=== PATIENT | female | born 1930 | race Caucasian/White ===

== ENCOUNTER 2019-04-11 13:41 | Inpatient (IN) | payer MEDICARE, OTHER ==
[~2019-04-11] VITALS: Ht 165.1 cm; Wt 84.1 kg
[2019-04-11] MEDS ORDERED: IV NORMAL SALINE 500 ML BAG IV ONE (14:15)
[2019-04-11 14:42] LABS: BASOPHILS # (AUTO) 0.1 K/uL (0.0-8.0); CARBON DIOXIDE 33 mmol/L (21-32); CHLORIDE 102 mmol/L (98-107); CREATININE 1.4 mg/dL (0.6-1.3); EOSINOPHILS # (AUTO) 0.1 K/uL (0.0-0.7); EOSINOPHILS % (AUTO) 1.7 % (0.0-7.0); GLUCOSE 104 mg/dL (74-106); HEMATOCRIT 29.7 % (31.2-41.9); HEMOGLOBIN 9.3 g/dL (10.9-14.3); LYMPHOCYTES # (AUTO) 1.9 K/uL (20.0-40.0); MEAN CORPUSCULAR HGB CONC 31 g/dL (32.3-35.6); MEAN CORPUSCULAR VOLUME 92.4 fL (75.5-95.3); MONOCYTES # (AUTO) 0.5 K/uL (2.0-10.0); MONOCYTES % (AUTO) 9.7 % (0.0-11.0); NEUTROPHILS % (AUTO) 53.6 % (38.5-71.5); PLATELET COUNT (AUTO) 130 K/uL (179-408); POTASSIUM 5.1 mmol/L (3.5-5.1); RED BLOOD CELL COUNT(AUTO) 3.22 MIL/uL (3.63-4.92); UREA NITROGEN, BLOOD 38 mg/dL (7-18); WHITE BLOOD COUNT (AUTO) 5.5 K/uL (3.8-11.8)
[2019-04-11 14:47] LABS: ALANINE AMINOTRANSFERASE 6 U/L (14-59); ALKALINE PHOSPHATASE 174 U/L (50-136); ASPARTATE AMINOTRANSFERASE 9 U/L (15-37); BILIRUBIN,DIRECT 0.3 mg/dL (0.0-0.2); BILIRUBIN,TOTAL 0.9 mg/dL (0.2-1.0); LIPASE 73 U/L (73-393); TOTAL PROTEIN, SERUM 8.9 g/dL (6.4-8.2)
--- NOTE | 2019-04-11 15:00 | NUR ---
perineal hygiene provided.
[2019-04-11 15:12] LABS: *BILIRUBIN,URIN NEGATIVE (NEGATIVE); *CLARITY,URINE SLIGHTLY CLOUDY (CLEAR); *COLOR,URINE DARK YELLOW (YELLOW); *KETONES,URINE TRACE (NEGATIVE); *UROBILINOGEN,URINE 0.2 E.U./dl (NORMAL); LEUKOCYTE ESTERASE ,URINE 1+ (NEGATIVE); NITRITE, URINE NEGATIVE (NEGATIVE); UGLUCOSE NEGATIVE (NEGATIVE)
[2019-04-11] MEDS ORDERED: ALBUTEROL SULFATE 2.5 MG/3 ML NEBU NEB ONE (15:15)
[2019-04-11] MEDS ORDERED: IPRATROPIUM BROMIDE 0.5 MG/2.5 ML NEBU NEB ONE (15:15)
[2019-04-11 15:23] LABS: *BLOOD, URINE TRACE (NEGATIVE)
[2019-04-11 15:25] LABS: BACTERIA,URINE FEW /HPF (NONE SEEN); SQUAMOUS EPITHELIAL CELL,UR MODERATE /HPF (NONE SEEN); WBC,URINE 50-80 /HPF (0-3)
[2019-04-11 15:26] LABS: MUCUS,URINE MODERATE /LPF (0-FEW); YEAST,URINE MODERATE /HPF (NONE SEEN)
[2019-04-11] MEDS ORDERED: ALBUTEROL SULFATE 2.5 MG/3 ML NEBU ONE (15:28)
[2019-04-11] MEDS ORDERED: IPRATROPIUM BROMIDE 0.5 MG/2.5 ML NEBU ONE (15:28)
[2019-04-11] MEDS ORDERED: MELA3TAB63 GT (15:53)
[2019-04-11] MEDS ORDERED: POTA20PA34 GT (15:53)
[2019-04-11] MEDS ORDERED: SIME80TA15 GT (15:53)
[2019-04-11] MEDS ORDERED: ENTA200T3 GT (15:53)
[2019-04-11] MEDS ORDERED: FERR220S6 GT (15:53)
[2019-04-11] MEDS ORDERED: LACT1TAB12 GT (15:53)
[2019-04-11] MEDS ORDERED: AMIN30LI26 GT (15:53)
[2019-04-11] MEDS ORDERED: CYAN-51 GT (15:53)
[2019-04-11] MEDS ORDERED: MULT-213 GT (15:53)
[2019-04-11] MEDS ORDERED: EPOE1VIA12 IJ (15:53)
[2019-04-11] MEDS ORDERED: ASCO500T87 GT (15:53)
[2019-04-11] MEDS ORDERED: ACET-2154 GT ×3 (15:53)
[2019-04-11] MEDS ORDERED: LOPE-197 GT (15:53)
[2019-04-11] MEDS ORDERED: ASCO-375 GT (15:53)
[2019-04-11] MEDS ORDERED: MAGN400O6 GT (15:53)
[2019-04-11] MEDS ORDERED: NA P133E RC (15:53)
[2019-04-11] MEDS ORDERED: FAMO40TA7 GT (15:53)
[2019-04-11] MEDS ORDERED: LINA5TAB GT (15:53)
[2019-04-11] MEDS ORDERED: CARB-93 GT (15:53)
[2019-04-11] MEDS ORDERED: INSU100V9 SUBCUT (15:53)
[2019-04-11] MEDS ORDERED: DONE5TAB34 GT (15:53)
[2019-04-11] MEDS ORDERED: TORS20TA3 GT (15:53)
[2019-04-11] MEDS ORDERED: CYAN-10 IJ (15:53)
[2019-04-11] MEDS ORDERED: INSU100V7 SQ (15:53)
[2019-04-11] MEDS ORDERED: LEVO100T10 GT (15:53)
[2019-04-11] MEDS ORDERED: BISA10SU61 RC (15:53)
[2019-04-11] MEDS ORDERED: RIVA15TA GT (15:53)
[2019-04-11] MEDS ORDERED: DIGO125T GT (15:53)
[2019-04-11] MEDS ORDERED: ACET-73 GT (15:54)
[2019-04-11] MEDS ORDERED: ATROPINE 1% SL (15:54)
[2019-04-11] MEDS ORDERED: IPRA3AMP22 IH ×2 (15:54)
--- NOTE | 2019-04-11 17:00 | NUR ---
pt transfered to [facility] when bed available accompanied by rt. pt daughter and patient care assistant at bedside most of the er stay. pt reamined the same. vss.
--- NOTE | 2019-04-11 17:30 | NUR ---
Admit a 89 yo female from ER via [facility] with a c/o rectal bleed. HR V pacing 100%. No aqctive bleeding noted at this time. Notified Dr Moody of admission.
[2019-04-11] MEDS ORDERED: FLEET ENEMA 133 ML BOTTLE RC PRN (19:45)
[2019-04-11] MEDS ORDERED: BISACODYL 10 MG SUPP.RECT RC PRN (19:45)
[2019-04-11] MEDS ORDERED: MAGNESIUM HYDROXIDE 30 ML LIQUID UDC GT PRN (19:45)
[2019-04-11 20:00] VITALS: BP 124/59
[2019-04-11] MEDS ORDERED: INSULIN REGULAR, HUMAN 300 UNIT/3 ML VIAL SQ PRN (20:00)
[2019-04-11] MEDS ORDERED: DEXTROSE 50% 50 ML DISP.SYRIN IV PRN (20:00)
--- NOTE | 2019-04-11 20:00 | NUR ---
RECEIVED PT WITHDRAWS TO PAINFUL STIMULI. TRACH TO VENT W/ SETTINGS OF AC-15, TV-400, FIO2-35%, PEEP-+5 W/ O2 SAT OF 100%. HEP LOCK INTACT & PATENT ON LFA. G-TUBE INTACT & PATENT, NPO EXCEPT MEDS, REMAINS CLAMPED.SUCTIONED VIA TRACH & ORALLY W/ MINIMAL AMT OF TANNISH MUCOUS. REPOSITIONED ON HER SIDE W/ HOB ELEVATED.
[2019-04-11] MEDS: DONEPEZIL 5 MG TABLET GT SCH (21:08)
[2019-04-11] MEDS ORDERED: MELATONIN 3 MG TABLET ONE (21:24)
[2019-04-11] MEDS ORDERED: SIMETHICONE 80 MG TAB.CHEW ONE (21:25)
[2019-04-11] MEDS ORDERED: AMIODARONE HCL 200 MG TABLET ONE (21:26)
[2019-04-11] MEDS ORDERED: CARBIDOPA/LEVODOPA 25-100MG TABLET ONE ×2 (21:26→21:53)
[2019-04-11] MEDS: SIMETHICONE 80 MG TAB.CHEW GT SCH (21:40)
[2019-04-11] MEDS: CARBIDOPA/LEVODOPA 25-100MG TABLET GT SCH (21:42)
[2019-04-11] MEDS: MELATONIN 3 MG TABLET GT SCH (21:45)
[2019-04-11] MEDS: ENTACAPONE 200 MG TABLET GT SCH (21:57)
[2019-04-11] MEDS ORDERED: ENTACAPONE 200 MG TABLET ONE (22:06)
[2019-04-11 22:07] LABS: BASOPHILS # (AUTO) 0.1 K/uL (0.0-8.0); BASOPHILS % (AUTO) 1.3 % (0.0-2.0); EOSINOPHILS # (AUTO) 0.1 K/uL (0.0-0.7); EOSINOPHILS % (AUTO) 1.7 % (0.0-7.0); HEMATOCRIT 25.9 % (31.2-41.9); HEMOGLOBIN 8.2 g/dL (10.9-14.3); LYMPHOCYTES # (AUTO) 1.2 K/uL (20.0-40.0); LYMPHOCYTES % (AUTO) 26.8 % (20.5-51.5); MEAN CORPUSCULAR HEMOGLOBIN 29.2 uug (24.7-32.8); MEAN CORPUSCULAR HGB CONC 32 g/dL (32.3-35.6); MEAN CORPUSCULAR VOLUME 91.9 fL (75.5-95.3); MONOCYTES # (AUTO) 0.6 K/uL (2.0-10.0); MONOCYTES % (AUTO) 12.6 % (0.0-11.0); NEUTROPHILS # (AUTO) 2.7 K/uL (1.8-8.9); NEUTROPHILS % (AUTO) 57.6 % (38.5-71.5); PLATELET COUNT (AUTO) 101 K/uL (179-408); RED BLOOD CELL COUNT(AUTO) 2.82 MIL/uL (3.63-4.92); WHITE BLOOD COUNT (AUTO) 4.7 K/uL (3.8-11.8)
[2019-04-11] MEDS: IV D5 1/2 NS 1000 ML 1,000 ML IV PRN (22:41)
[2019-04-11] MEDS: BLOOD SUGAR DIAGNOSTIC 1 EACH STRIP VI SCH (22:42)
[2019-04-11] MEDS: PANTOPRAZOLE SODIUM 40 MG VIAL IV SCH (22:49)
[2019-04-11] MEDS: IPRATROPIUM BROMIDE 0.5 MG/2.5 ML NEBU NEB SCH (22:50)
--- NOTE | 2019-04-11 23:00 | NUR ---
HS CARE DONE.NO RECTAL BLEEDING NOTED THIS TIME. SUCTIONED & REPOSITIONED W/ HOB ELEVATED.
[2019-04-11] MEDS ORDERED: INSULIN GLARGINE,HUM 300 UNITS/3 ML CARTRIDGE SQ ONE (23:01)
[2019-04-11] MEDS: INSULIN GLARGINE,HUM 300 UNITS/3 ML CARTRIDGE SQ SCH (23:06)
[2019-04-12] VITALS: BP 114/48
[2019-04-12] MEDS: IPRATROPIUM BROMIDE 0.5 MG/2.5 ML NEBU NEB SCH ×6 (03:23→23:14)
[2019-04-12 04:00] VITALS: BP 117/53
--- NOTE | 2019-04-12 04:00 | NUR ---
AM CARE DONE. HAD SMALL AMT. OF RECTAL BLEED. G-TUBE CONNECTED TO LOW INTERMITENT SUCTION W/ THICK BROWNISH DRAINAGE. REPOSITIONED ON HER SIDE W/ HOB ELEVATED. TRACH CARE DONE. G-TUBE SITE CLEANED & DRSG APPLIED.
[2019-04-12] MEDS ORDERED: Z GUARD REMEDY PASTE 57 GM TUBE TOP PRN (04:45)
[2019-04-12] MEDS ORDERED: ENTACAPONE 200 MG TABLET ONE (05:48)
[2019-04-12] MEDS ORDERED: SIMETHICONE 80 MG TAB.CHEW ONE (05:48)
[2019-04-12] MEDS ORDERED: CARBIDOPA/LEVODOPA 25-100MG TABLET ONE (05:48)
--- NOTE | 2019-04-12 05:53 | NUR ---
V/S STABLE . O2 SAT 100%. RESP IS SHALLOW.
[2019-04-12] MEDS: ENTACAPONE 200 MG TABLET GT SCH ×3 (05:57→13:31)
[2019-04-12] MEDS: SIMETHICONE 80 MG TAB.CHEW GT SCH ×3 (06:00→20:28)
[2019-04-12] MEDS: CARBIDOPA/LEVODOPA 25-100MG TABLET GT SCH ×3 (06:01→13:31)
--- NOTE | 2019-04-12 07:20 | NUR ---
RECEIVED PT THAT WITHDRAWS FROM PAINFUL STIMULI. TRACH TO KARLA VENT W/ SETTINGS OF AC-15, TV-400, FIO2-35%, PEEP5, O2 SAT OF 100%. SALINE LOCK INTACT & PATENT ON LFA. G-TUBE LEAKING AROUND OPENING, SITE DRESSING SATURATED, NPO EXCEPT MEDS, REMAINS CLAMPED. REPOSITIONED ON HER BACK W/ HOB ELEVATED >30. ENRIQUEZ DRAINING ED URINE, HEELS FLOATED AND BONY PROMINCES OFFLOADED.
[2019-04-12 08:00] VITALS: BP 120/61
[2019-04-12] MEDS: LEVOTHYROXINE SODIUM 100 MCG TABLET GT SCH (08:07)
[2019-04-12] MEDS: ACIDOPHILUS/BULGARICUS CHEW TAB GT SCH ×2 (08:08→20:24)
[2019-04-12] MEDS: DIGOXIN 125 MCG TABLET GT SCH (08:08)
[2019-04-12] MEDS: ASCORBIC ACID 500 MG TABLET GT SCH (08:09)
[2019-04-12] MEDS: PANTOPRAZOLE SODIUM 40 MG VIAL IV SCH ×2 (08:09→20:25)
[2019-04-12] MEDS: MULTIVIT, IRON, MIN NO. 8, FA TABLET GT SCH (08:09)
[2019-04-12 08:10] LABS: CARBON DIOXIDE 33 mmol/L (21-32); CHLORIDE 103 mmol/L (98-107); CREATININE 1.5 mg/dL (0.6-1.3); GLUCOSE 111 mg/dL (74-106); PHOSPHOROUS 3.6 mg/dL (2.5-4.9); POTASSIUM 4.7 mmol/L (3.5-5.1)
[2019-04-12] MEDS: Z GUARD REMEDY PASTE 57 GM TUBE TOP SCH ×2 (08:10→20:30)
[2019-04-12 08:20] LABS: UREA NITROGEN, BLOOD 41 mg/dL (7-18)
[2019-04-12] MEDS: BLOOD SUGAR DIAGNOSTIC 1 EACH STRIP VI SCH ×4 (08:20→20:36)
[2019-04-12] MEDS: PROTEIN SUPPLEMENT (PROSTAT) 30 ML LIQUID GT SCH ×2 (08:20→17:42)
[2019-04-12] MEDS ORDERED: PIPERACILLIN/TAZO 2.25 G in IV DEXTROSE 5% 50 ML IV SCH (08:30)
--- NOTE | 2019-04-12 08:30 | NUR ---
PATIENT SEEN BY DR. PEARSON, INFORMED HIM THAT PATIENTS DAUGHTER/DPOA WOULD LIKE TO SPEAK WITH HIM. ORDERS NOTED IN CHART. PATIENT WAS ALSO SEEN BY DR CORMIER- ORDERS FOR KUB AND ABG.
[2019-04-12 08:39] LABS: BASOPHILS % (AUTO) 0.9 % (0.0-2.0); EOSINOPHILS # (AUTO) 0.1 K/uL (0.0-0.7); EOSINOPHILS % (AUTO) 1.7 % (0.0-7.0); HEMATOCRIT 26.1 % (31.2-41.9); HEMOGLOBIN 8.1 g/dL (10.9-14.3); LYMPHOCYTES % (AUTO) 23.9 % (20.5-51.5); MEAN CORPUSCULAR HEMOGLOBIN 28.8 uug (24.7-32.8); MEAN CORPUSCULAR HGB CONC 31 g/dL (32.3-35.6); MEAN CORPUSCULAR VOLUME 92.4 fL (75.5-95.3); MONOCYTES # (AUTO) 0.4 K/uL (2.0-10.0); MONOCYTES % (AUTO) 10.2 % (0.0-11.0); NEUTROPHILS # (AUTO) 2.7 K/uL (1.8-8.9); NEUTROPHILS % (AUTO) 63.3 % (38.5-71.5); PLATELET COUNT (AUTO) 106 K/uL (179-408); RED BLOOD CELL COUNT(AUTO) 2.82 MIL/uL (3.63-4.92); WHITE BLOOD COUNT (AUTO) 4.2 K/uL (3.8-11.8)
--- NOTE | 2019-04-12 08:50 | NUR ---
SEND ABG RESULTS TO DR ROMANO AND NOTIFIED HIM OF POOR VISUALIZATION OF CHEST XRAY. RECEIVED ORDERS FOR ABDOMINAL/PELVIS CT.
[2019-04-12 08:52] LABS: ABG BASE EXCESS 4.1 mmol/L; ABG HCO3 29.7 mmol/L; ABG PCO2 48.7 mmHg (35.0-45.0); ABG PH 7.403 (7.350-7.450); ABG PO2 134.3 mmHg (75.0-100.0); ABG SITE RIGHT RADIAL; ABG TOTAL HEMOGLOBIN 12.7 G/dL (12.0-16.0); COHb 1.7 % (0.5-1.5); MetHb 0.3 % (0.0-1.5); VENT MODE VENT - A/C 15; VT, ABG 400 mL
[2019-04-12] MEDS ORDERED: TORSEMIDE 20 MG GT SCH (09:00)
[2019-04-12] MEDS ORDERED: PANTOPRAZOLE SODIUM 40 MG VIAL IV SCH (09:00)
[2019-04-12] MEDS ORDERED: Medication Not On Formulary EA (Lactobacillus Acidophilus (Acidophilus) 1 EACH) GT SCH (09:00)
[2019-04-12] MEDS ORDERED: Medication Not On Formulary EA (Multivitamins W-Minerals (Multivitamin With Minerals) 1 GT SCH (09:00)
--- NOTE | 2019-04-12 10:00 | NUR ---
PATIENT TAKEN TO CT.
[2019-04-12] MEDS: COLCHICINE 0.6 MG TABLET PO SCH (10:10)
[2019-04-12] MEDS: LINAGLIPTIN 5 MG TABLET GT SCH (10:12)
[2019-04-12] MEDS: FUROSEMIDE 40 MG TABLET PO SCH (10:12)
[2019-04-12] MEDS: CYANOCOBALAMIN 1,000 MCG TABLET GT SCH (10:13)
[2019-04-12] MEDS: PIPERACILLIN/TAZOBACTAM/D5W 3.375 G in IV DEXTROSE 5% 50 ML IV SCH ×2 (10:13→17:46)
[2019-04-12 10:19] LABS: MAGNESIUM 2.4 mg/dL (1.8-2.4)
--- NOTE | 2019-04-12 10:30 | NUR ---
ULTRASOUND DONE AND REPORTED TO DR PEARSON. PATIENT IS TO BE SCHEDULED FOR ULTRASOUND GUIDED PARACENTESIS TOMORROW AND NPO AFTER MIDNIGHT.
[2019-04-12] MEDS ORDERED: NEOMYCIN SULFATE 500 MG TABLET PO ONE (11:43)
--- NOTE | 2019-04-12 11:55 | NUR ---
US guided Paracentesis schedled for tmrw AM. Notified RN Lennie and pt daughter flori.
[2019-04-12 12:00] VITALS: BP 123/63
[2019-04-12] MEDS: IV D5 1/2 NS 1000 ML 1,000 ML IV PRN (12:58)
[2019-04-12] MEDS ORDERED: GLUCERNA 1.2 1000ML LIQUID GT PRN (14:30)
[2019-04-12] MEDS ORDERED: HYDROCORTISONE RECTAL SUPP 25 MG EACH RC PRN (14:45)
--- NOTE | 2019-04-12 15:07 | NUR ---
PATIENT SEEN BY GENERAL SURGERY
[2019-04-12 16:00] VITALS: BP 101/49
[2019-04-12] MEDS ORDERED: INDOMETHACIN 25 MG CAPSULE PO SCH (18:00)
--- NOTE | 2019-04-12 18:28 | NUR ---
Patient exhibited no distress throughout shift. Advance directive and DPOA paperwork received and placed in chart. Patient continues to be on Melody vent tach with shiley 6xlt, settings a/c 15, TV 400, Peep 5, FIO2 35%. Abdomen remains distended with suction of gtube to low intermittent. Patient to remain npo for procedure tomorrow morning. Consent is signed by daughter DPRUDY Valle. Patient is pacing on the monitor at 75 o2 saturation @100%. IV fluids d51/2ns @75cc/hr. Patient had three BM's this shift and was frequently repositioned and cleaned to prevent further deterioration of stage 3 decubitus sacral ulcer.
--- NOTE | 2019-04-12 19:35 | NUR ---
Pt received on continuous mechanical ventilation via Trach. Pt is on Guerra vent with ordered settings of A/C-15, VT-400, PEEP+5, FIO2-35% Trach is Shiley 6XLT-D, patent and secure. In-line nebulizer Treatments given as ordered with Q4 Atrovent. Tx tolerated well, with no adverse reaction noted. Sxn'd for small amounts of thick yellowish secretions. Vent alarm parameters checked, on and audible. Bag/valve/mask and back up trach at bedside. Vent plugged into red emergency outlet. HME changed. Oral care done. Will continue to monitor.
[2019-04-12 20:00] VITALS: BP 128/72
[2019-04-12] MEDS: ENTACAPONE 200 MG TABLET PO SCH (20:10)
[2019-04-12] MEDS: CARBIDOPA/LEVODOPA 25-100MG TABLET PO SCH (20:11)
[2019-04-12] MEDS: MELATONIN 3 MG TABLET GT SCH (20:16)
[2019-04-12] MEDS: DONEPEZIL 5 MG TABLET GT SCH (20:23)
[2019-04-12] MEDS: INSULIN GLARGINE,HUM 300 UNITS/3 ML CARTRIDGE SQ SCH (20:37)
[2019-04-13] VITALS (71 sets, daily range): BP systolic 32–173; BP diastolic 16–156
[2019-04-13] MEDS: PIPERACILLIN/TAZOBACTAM/D5W 3.375 G in IV DEXTROSE 5% 50 ML IV SCH ×3 (01:13→21:45)
[2019-04-13] MEDS: IV D5 1/2 NS 1000 ML 1,000 ML IV PRN ×3 (02:55→23:07)
[2019-04-13] MEDS: IPRATROPIUM BROMIDE 0.5 MG/2.5 ML NEBU NEB SCH ×6 (03:11→22:42)
--- NOTE | 2019-04-13 04:00 | NUR ---
Oral airway in use / patient loudly grinding teeth. Large amount black tarry stool. Noted distended abdomen. Remains NPO / paracentesis today. Low intermittent suction / murky brown drainage & at G-tube site. Noted low urine output.
[2019-04-13 05:07] LABS: BASOPHILS % (AUTO) 0.7 % (0.0-2.0); EOSINOPHILS # (AUTO) 0.1 K/uL (0.0-0.7); EOSINOPHILS % (AUTO) 2.1 % (0.0-7.0); HEMATOCRIT 26.7 % (31.2-41.9); HEMOGLOBIN 8.4 g/dL (10.9-14.3); LYMPHOCYTES # (AUTO) 0.5 K/uL (20.0-40.0); LYMPHOCYTES % (AUTO) 8.6 % (20.5-51.5); MEAN CORPUSCULAR HEMOGLOBIN 28.9 uug (24.7-32.8); MEAN CORPUSCULAR HGB CONC 32 g/dL (32.3-35.6); MEAN CORPUSCULAR VOLUME 91.7 fL (75.5-95.3); MONOCYTES # (AUTO) 0.4 K/uL (2.0-10.0); MONOCYTES % (AUTO) 6.3 % (0.0-11.0); NEUTROPHILS # (AUTO) 5.1 K/uL (1.8-8.9); NEUTROPHILS % (AUTO) 82.3 % (38.5-71.5); PLATELET COUNT (AUTO) 119 K/uL (179-408); RED BLOOD CELL COUNT(AUTO) 2.92 MIL/uL (3.63-4.92); WHITE BLOOD COUNT (AUTO) 6.3 K/uL (3.8-11.8)
[2019-04-13 05:08] LABS: CARBON DIOXIDE 32 mmol/L (21-32); CHLORIDE 102 mmol/L (98-107); CREATININE 1.6 mg/dL (0.6-1.3); GLUCOSE 125 mg/dL (74-106); MAGNESIUM 2.1 mg/dL (1.8-2.4); PHOSPHOROUS 2.9 mg/dL (2.5-4.9); POTASSIUM 3.8 mmol/L (3.5-5.1); UREA NITROGEN, BLOOD 37 mg/dL (7-18)
[2019-04-13 05:20] LABS: THYROID STIMULATING HORMONE 2.639 mIU/mL (0.358-3.740)
[2019-04-13] MEDS: SIMETHICONE 80 MG TAB.CHEW GT SCH ×3 (06:10→22:00)
[2019-04-13] MEDS: CARBIDOPA/LEVODOPA 25-100MG TABLET GT SCH ×4 (06:10→16:04)
[2019-04-13] MEDS: ENTACAPONE 200 MG TABLET GT SCH ×4 (06:11→16:04)
[2019-04-13] MEDS: LEVOTHYROXINE SODIUM 100 MCG TABLET GT SCH (06:13)
--- NOTE | 2019-04-13 07:15 | NUR ---
Received report from night supervisor nurse, patient in bed, on kaley vent settings a/c 15, peep 5, TV 400, 35% 02. Vieyra draining bright yellow urine, hemodynamically stable, oxygen saturation 100%. SCD's on. Patient suctioned, repositioned and stool noted and patient care performed with linen change.
[2019-04-13] MEDS: BLOOD SUGAR DIAGNOSTIC 1 EACH STRIP VI SCH ×4 (07:38→22:04)
[2019-04-13] MEDS: ACETAMINOPHEN 325 MG TABLET GT PRN (07:41)
--- NOTE | 2019-04-13 07:48 | NUR ---
PT RECEIVED ON CMV WITH SETTNIGS OF AC 15, 400, PEEP +5, FIO2 35%. PT HAS A SHILEY #6 XLT CUFFED TRACH. VENT ALARMS CHECKED, ARE ON AND AUDIBLE. NO CHANGES MADE ON VENT AT THIS TIME. ADMINISTERED Q4 TX ORDERED BY MD. SUCTIONED SMALL AMOUNT OF THICK, PALE SECRETIONS. HME CHANGED. AMBU BAG AND BACK UP TRACH ARE AT BEDSIDE. VENT PLUGGED INTO RED EMERGENCY OUTLET. WILL CONTINUE TO MONITOR.
--- NOTE | 2019-04-13 07:51 | NUR ---
Contacted Dr. Townsend regarding blood pressure. Repositioned patient with legs elevated.
--- NOTE | 2019-04-13 08:00 | NUR ---
Received return call from Dr. Townsend. No new orders. BP appears to be increasing with leg elevation.
[2019-04-13] MEDS: FUROSEMIDE 40 MG TABLET PO SCH (09:00)
[2019-04-13] MEDS ORDERED: EPOETIN ALFA 10,000 UNITS/ML VIAL SQ SCH (09:00)
--- NOTE | 2019-04-13 09:00 | NUR ---
Received orders for 500cc ns bolus once from Dr. Townsend
[2019-04-13] MEDS: ACIDOPHILUS/BULGARICUS CHEW TAB GT SCH ×2 (09:07→21:00)
[2019-04-13] MEDS: DIGOXIN 125 MCG TABLET GT SCH (09:08)
[2019-04-13] MEDS: PROTEIN SUPPLEMENT (PROSTAT) 30 ML LIQUID GT SCH ×2 (09:08→17:00)
[2019-04-13] MEDS: CYANOCOBALAMIN 1,000 MCG TABLET GT SCH (09:10)
[2019-04-13] MEDS: MULTIVIT, IRON, MIN NO. 8, FA TABLET GT SCH (09:10)
[2019-04-13] MEDS: LINAGLIPTIN 5 MG TABLET GT SCH (09:10)
[2019-04-13] MEDS: PANTOPRAZOLE SODIUM 40 MG VIAL IV SCH ×2 (09:11→21:44)
[2019-04-13] MEDS: ASCORBIC ACID 500 MG TABLET GT SCH (09:11)
[2019-04-13] MEDS: COLCHICINE 0.6 MG TABLET PO SCH (09:11)
[2019-04-13] MEDS: Z GUARD REMEDY PASTE 57 GM TUBE TOP SCH ×2 (09:13→21:46)
--- NOTE | 2019-04-13 10:00 | NUR ---
Patient prepped for paracentesis US tech and Dr. Swift at bedside. Family asked to leave the room during procedure, approved by Dr. Swift to stay.
[2019-04-13] MEDS ORDERED: ALBUMIN HUMAN 25% 100 ML IV ONE (12:15)
[2019-04-13] MEDS ORDERED: ALBUMIN HUMAN 25% 25 GM in PREMIXED 1 EACH IV SCH (12:30)
--- NOTE | 2019-04-13 12:30 | NUR ---
Received orders for Plasmanate from dr Townsend after contacting for decreased BP
--- NOTE | 2019-04-13 12:53 | NUR ---
WOUND CARE CONSULT: UNABLE TO DO SKIN ASSESSMENT AT THIS TIME DUE TO PT HEMODYNAMICALLY UNSTABLE. PER SENDING FACILITY AND ADMISSION DOCUMENTATION, PT HAS STAGE 3 ULCER TO SACRAL AREA, PRESENT ON ADMISSION. RECOMMEND SURGICAL CONSULT. DR YAIMA PEARSON NOTIFIED (CURRENTLY ON CASE). RECOMMENDATIONS MADE FOR SKIN PROTECTION AND WOUND CARE. DISCUSSED WITH NURSING STAFF. FIRST STEP LOW AIRLOSS MATTRESS ON ORDER. WILL SEE PRN. IN AGREEMENT WITH PLAN OF CARE.
[2019-04-13 13:39] LABS: EOSINOPHILS # (AUTO) 0.2 K/uL (0.0-0.7); LYMPHOCYTES # (AUTO) 0.6 K/uL (20.0-40.0)
[2019-04-13 13:44] LABS: BASOPHILS % (AUTO) 0.8 % (0.0-2.0); EOSINOPHILS % (AUTO) 2.9 % (0.0-7.0); LYMPHOCYTES % (AUTO) 10.5 % (20.5-51.5); MEAN CORPUSCULAR HEMOGLOBIN 29.6 uug (24.7-32.8); MEAN CORPUSCULAR HGB CONC 32 g/dL (32.3-35.6); MEAN CORPUSCULAR VOLUME 92.7 fL (75.5-95.3); MONOCYTES # (AUTO) 0.5 K/uL (2.0-10.0); MONOCYTES % (AUTO) 8.3 % (0.0-11.0); NEUTROPHILS # (AUTO) 4.8 K/uL (1.8-8.9); NEUTROPHILS % (AUTO) 77.5 % (38.5-71.5); PLATELET COUNT (AUTO) 95 K/uL (179-408); RED BLOOD CELL COUNT(AUTO) 2.47 MIL/uL (3.63-4.92); WHITE BLOOD COUNT (AUTO) 6.2 K/uL (3.8-11.8)
[2019-04-13 13:47] LABS: HEMOGLOBIN 7.3 g/dL (10.9-14.3)
[2019-04-13 13:49] LABS: HEMATOCRIT 22.9 % (31.2-41.9)
[2019-04-13 14:21] LABS: BAND % (MANUAL) 11 % (0-10); EOSINOPHILS % (MANUAL) 3 % (0-8); LYMPHOCYTES % (MANUAL) 13 % (20-40); METAMYELOCYTES % 1 % (0-1); MONOCYTES % (MANUAL) 5 % (2-10); MYELOCYTES % 1 % (0-0); NEUTROPHILS % (MANUAL) 64 % (42-75)
[2019-04-13 14:23] LABS: REACTIVE LYMPHOCYTES 2 % (0-0)
[2019-04-13] MEDS: ALBUTEROL SULFATE 2.5 MG/3 ML NEBU NEB PRN ×2 (14:30→18:53)
--- NOTE | 2019-04-13 14:30 | NUR ---
PER NURSE, FAMILY IS SUGGESTING PT IS SHORT OF BREATH. UPON ARRIVAL, NO S/S OF SOB OBSERVED. PRN ALBUTEROL TX ADMINISTERED ALONG WITH Q4 ATROVENT TX A PRECAUTIONARY. HEART RATE AND SPO2 WITHIN NORMAL LIMITS AT THIS TIME. WILL CONTINUE TO MONITOR.
--- NOTE | 2019-04-13 16:00 | NUR ---
Received critical values for hemoglobin 7.3, relayed to dr hicks. orders received to get consent and order one unit PRBC.
[2019-04-13] MEDS: SOD FERRIC GLUC COMPLX/SUCROSE 125 MG in IV NORMAL SALINE 100 ML IV SCH (16:03)
[2019-04-13] MEDS ORDERED: NOREPINEPHRINE BITARTRATE 8 MG in IV DEXTROSE 5% 500 ML IV PRN ×4 (16:30)
[2019-04-13] MEDS ORDERED: IV NS 1000 ML 1,000 ML IV PRN (17:00)
--- NOTE | 2019-04-13 17:00 | NUR ---
Contacted Dr. Ascencio and received orders to start neosynephrine at max dose 300mcg.
--- NOTE | 2019-04-13 17:04 | NUR ---
Orders received from dr mcdermott for 1L bolus of ns after calling about patients declining BP.
[2019-04-13] MEDS: PHENYLEPHRINE IV 20 MG in IV DEXTROSE 5% 250 ML IV PRN ×2 (17:16→18:18)
--- NOTE | 2019-04-13 17:23 | NUR ---
Received orders to get an arterial line inserted as BP is labile. [employer] Research Technician notified.
[2019-04-13] MEDS ORDERED: DOPamine IV DRIP 400 MG/250ML 250 ML IV PRN (17:30)
[2019-04-13] MEDS: DOPamine IV DRIP 400 MG/250ML 250 ML IV PRN ×2 (17:32→22:35)
--- NOTE | 2019-04-13 17:40 | NUR ---
PLACED PATIENT ON 100% VIA VAN VENTILATOR.
[2019-04-13] MEDS: HYDROCORTISONE SOD SUCCINATE 100 MG/2 ML VIAL IV SCH ×2 (18:43→22:30)
[2019-04-13] MEDS ORDERED: VASOPRESSIN 50 UNIT in IV DEXTROSE 5% 500 ML IV PRN ×2 (19:00→21:15)
--- NOTE | 2019-04-13 19:00 | NUR ---
Report given to food production machine operator nurse, anesthesiologist currently inserting arterial line. Patient is on kaley vent a/c 15 peep 5 respiration 100% oxygen, TV 400. Currently on levophed, neosynephrine, iv fluids ns @ 75cc/hr.
--- NOTE | 2019-04-13 19:00 | NUR ---
Received orders for vasopressin after calling Dr. Townsend regarding BP decline.
--- NOTE | 2019-04-13 19:23 | NUR ---
Received orders to get a central line as multiple pressors are infusing.
--- NOTE | 2019-04-13 19:30 | NUR ---
blood consent obtained from daughter and patient needs 1 unit of PRBC . H/H LOW 7.3.
--- NOTE | 2019-04-13 19:40 | NUR ---
left radial anthony and right internal jugular vein central line consent obtained form daughter ,daughter signed consent and witness by rn assigned and dr: DIAZ PALACIOS.
[2019-04-13] MEDS: PHENYLEPHRINE IV 80 MG in IV DEXTROSE 5% 250 ML IV PRN (19:41)
[2019-04-13] MEDS ORDERED: NORMAL SALINE IV PRN (19:45)
[2019-04-13] MEDS ORDERED: VASOPRESSIN IV PRN (19:45)
--- NOTE | 2019-04-13 19:45 | NUR ---
started 1 unit of PRBC and blood transfusion protocol .followed blood transfusion protocol .
--- NOTE | 2019-04-13 19:45 | NUR ---
DR: DIAZ AT B/S AND ASSISTED WITH SWATI AND CENTRAL LINE PLACED .
[2019-04-13] MEDS: CARBIDOPA/LEVODOPA 25-100MG TABLET PO SCH (20:00)
[2019-04-13] MEDS: ENTACAPONE 200 MG TABLET PO SCH (20:00)
--- NOTE | 2019-04-13 20:00 | NUR ---
patient received in bed orally intubated via the trach shiely no 6 xlt ac of 15/400 100% peep 5. patient saturation 81 to 91 % and at times unable to obtained , placed pulse oximetry to the left ear .on multiple pressors on max dose see spreadsheet .patient daughter and care assistant at bedside as per daughter she still wants full code status and wants everything done . updated daughter with v/s /labs /and medication and procedure needed verbalized understanding .
[2019-04-13] MEDS: MELATONIN 3 MG TABLET GT SCH (21:00)
[2019-04-13] MEDS: DONEPEZIL 5 MG TABLET GT SCH (21:00)
[2019-04-13] MEDS: NOREPINEPHRINE BITARTRATE 16 MG in IV DEXTROSE 5% 500 ML IV PRN (21:06)
--- NOTE | 2019-04-13 21:30 | NUR ---
abdomen distended and hard ,peg connected to low intermittent wall suction obtained 300 ml of yellowish brownish gastric residual .peg dressing done applied 4x4 and secure with tape.
--- NOTE | 2019-04-13 22:00 | NUR ---
hold medication via the peg c/o high residual form the peg and patient on reverse Trendelenburg c/o low bp aspiration precaution observed , .
[2019-04-13] MEDS: INSULIN GLARGINE,HUM 300 UNITS/3 ML CARTRIDGE SQ SCH (22:05)
[2019-04-13] MEDS ORDERED: SODIUM BICARBONATE 8.4% 50 MEQ/50 ML DISP.SYRIN IV ONE ×2 (23:15→23:28)
--- NOTE | 2019-04-13 23:16 | NUR ---
saturation low and abg done via the left a-line . results dictated to dr: JUAN ANTONIO with with new vent settings and sodium bicarbonate ivp and and ivf drip maintain .
[2019-04-13] MEDS: SODIUM BICARBONATE 8.4% 100 MEQ in IV D5W 1000ML 1,000 ML IV PRN (23:44)
[2019-04-14] VITALS (93 sets, daily range): BP systolic 84–164; BP diastolic 29–114
--- NOTE | 2019-04-14 | NUR ---
Report received from Edith PINTO. Patient with trache to vent with settings: AC=15, VCU7=641%, PEEP=5, AY=231 ml. Sat improving. Patient's daughter at bedside. Advised of plan of care. On 4 vasopressors via Mid line DEE and RIJ TLC. Assessment done; see flow sheet for details. Addendum: 04/14/19 at 0731 by FRANK BURTON RN Amended: Links added. Addendum: 04/14/19 at 0732 by FRANK BURTON RN Amended: Links added. Addendum: 04/14/19 at 0733 by FRANK BURTON RN Amended: Links added. Addendum: 04/14/19 at 0734 by FRANK BURTON RN Amended: Links added.
[2019-04-14] MEDS: PHENYLEPHRINE IV 80 MG in IV DEXTROSE 5% 250 ML IV PRN ×4 (00:10→18:38)
--- NOTE | 2019-04-14 01:00 | NUR ---
BPs monitored closely. Pressors titrated; see IV spread sheet for rates/dosages. Addendum: 04/14/19 at 0732 by FRANK BURTON RN Amended: Links added. Addendum: 04/14/19 at 0733 by FRANK BURTON RN Amended: Links added. Addendum: 04/14/19 at 0734 by FRANK BURTON RN Amended: Links added.
[2019-04-14] MEDS: PIPERACILLIN/TAZOBACTAM/D5W 3.375 G in IV DEXTROSE 5% 50 ML IV SCH ×2 (01:43→04:47)
--- NOTE | 2019-04-14 02:30 | NUR ---
Pitressin drip dc/d. Remains on Levophed, Neosynephrine and Dopamine drips to keep BP above 90 systole. BPs monitored closely. Addendum: 04/14/19 at 0733 by FRANK BURTON RN Amended: Links added. Addendum: 04/14/19 at 0734 by FRANK BUROTN RN Amended: Links added.
[2019-04-14] MEDS: IPRATROPIUM BROMIDE 0.5 MG/2.5 ML NEBU NEB SCH ×5 (04:10→21:00)
--- NOTE | 2019-04-14 04:30 | NUR ---
Am care done; patient still with tachypnea but sat above 94%. Addendum: 04/14/19 at 0734 by FRANK BURTON RN Amended: Links added.
[2019-04-14 05:06] LABS: BASOPHILS % (AUTO) 0.2 % (0.0-2.0); EOSINOPHILS % (AUTO) 0.2 % (0.0-7.0); HEMATOCRIT 39.3 % (31.2-41.9); HEMOGLOBIN 12.3 g/dL (10.9-14.3); LYMPHOCYTES # (AUTO) 2.9 K/uL (20.0-40.0); LYMPHOCYTES % (AUTO) 10.4 % (20.5-51.5); MEAN CORPUSCULAR HEMOGLOBIN 28.3 uug (24.7-32.8); MEAN CORPUSCULAR HGB CONC 31 g/dL (32.3-35.6); MEAN CORPUSCULAR VOLUME 90.8 fL (75.5-95.3); MONOCYTES # (AUTO) 1.7 K/uL (2.0-10.0); MONOCYTES % (AUTO) 6.1 % (0.0-11.0); NEUTROPHILS % (AUTO) 83.1 % (38.5-71.5); PLATELET COUNT (AUTO) 213 K/uL (179-408); RED BLOOD CELL COUNT(AUTO) 4.33 MIL/uL (3.63-4.92); WHITE BLOOD COUNT (AUTO) 27.7 K/uL (3.8-11.8)
[2019-04-14 05:46] LABS: ALKALINE PHOSPHATASE 284 U/L (50-136); ASPARTATE AMINOTRANSFERASE 43 U/L (15-37); BILIRUBIN,TOTAL 2.1 mg/dL (0.2-1.0); CARBON DIOXIDE 21 mmol/L (21-32); CHLORIDE 93 mmol/L (98-107); MAGNESIUM 1.8 mg/dL (1.8-2.4); PHOSPHOROUS 4.5 mg/dL (2.5-4.9); POTASSIUM 3.7 mmol/L (3.5-5.1); TOTAL PROTEIN, SERUM 6.9 g/dL (6.4-8.2); UREA NITROGEN, BLOOD 38 mg/dL (7-18)
[2019-04-14 05:54] LABS: GLUCOSE 408 mg/dL (74-106)
[2019-04-14] MEDS: SIMETHICONE 80 MG TAB.CHEW GT SCH ×3 (06:00→22:00)
[2019-04-14] MEDS ORDERED: BLOOD SUGAR DIAGNOSTIC 1 EACH STRIP VI SCH (06:15)
[2019-04-14] MEDS ORDERED: INSULIN REGULAR, HUMAN 300 UNIT/3 ML VIAL SQ PRN (06:15)
[2019-04-14] MEDS ORDERED: DEXTROSE 50% 50 ML DISP.SYRIN IV PRN ×2 (06:15→11:00)
[2019-04-14 06:24] LABS: ALANINE AMINOTRANSFERASE < 6 U/L (14-59)
[2019-04-14] MEDS: HYDROCORTISONE SOD SUCCINATE 100 MG/2 ML VIAL IV SCH ×3 (06:24→21:57)
[2019-04-14] MEDS: LEVOTHYROXINE SODIUM 100 MCG TABLET GT SCH (06:32)
[2019-04-14] MEDS: ENTACAPONE 200 MG TABLET GT SCH ×4 (06:33→17:13)
[2019-04-14] MEDS: CARBIDOPA/LEVODOPA 25-100MG TABLET GT SCH ×4 (06:34→17:12)
[2019-04-14] MEDS: NOREPINEPHRINE BITARTRATE 16 MG in IV DEXTROSE 5% 500 ML IV PRN ×2 (07:26→22:32)
--- NOTE | 2019-04-14 07:30 | NUR ---
DOCTOR SAWYER IN THE UNIT ROUNDING ON PATIENT.
[2019-04-14] MEDS: DOPamine IV DRIP 400 MG/250ML 250 ML IV PRN ×2 (07:36→19:54)
[2019-04-14] MEDS: ACIDOPHILUS/BULGARICUS CHEW TAB GT SCH ×2 (07:47→21:58)
[2019-04-14] MEDS: LINAGLIPTIN 5 MG TABLET GT SCH (07:48)
[2019-04-14] MEDS: MULTIVIT, IRON, MIN NO. 8, FA TABLET GT SCH (07:48)
[2019-04-14] MEDS: CYANOCOBALAMIN 1,000 MCG TABLET GT SCH (07:50)
[2019-04-14] MEDS: PANTOPRAZOLE SODIUM 40 MG VIAL IV SCH ×2 (07:50→21:57)
[2019-04-14] MEDS: ASCORBIC ACID 500 MG TABLET GT SCH (07:51)
[2019-04-14] MEDS: COLCHICINE 0.6 MG TABLET PO SCH (07:51)
[2019-04-14] MEDS: FUROSEMIDE 40 MG TABLET PO SCH (07:53)
[2019-04-14] MEDS: Z GUARD REMEDY PASTE 57 GM TUBE TOP SCH ×2 (07:56→22:25)
[2019-04-14] MEDS: PROTEIN SUPPLEMENT (PROSTAT) 30 ML LIQUID GT SCH ×2 (07:57→17:16)
[2019-04-14 09:22] LABS: BASOPHILS % (AUTO) 0.1 % (0.0-2.0); EOSINOPHILS % (AUTO) 0.2 % (0.0-7.0); HEMATOCRIT 38.9 % (31.2-41.9); LYMPHOCYTES # (AUTO) 4.2 K/uL (20.0-40.0); LYMPHOCYTES % (AUTO) 16.1 % (20.5-51.5); MEAN CORPUSCULAR HEMOGLOBIN 28.4 uug (24.7-32.8); MEAN CORPUSCULAR HGB CONC 31 g/dL (32.3-35.6); MEAN CORPUSCULAR VOLUME 91.9 fL (75.5-95.3); MONOCYTES # (AUTO) 1.9 K/uL (2.0-10.0); MONOCYTES % (AUTO) 7.1 % (0.0-11.0); NEUTROPHILS % (AUTO) 76.5 % (38.5-71.5); PLATELET COUNT (AUTO) 189 K/uL (179-408); RED BLOOD CELL COUNT(AUTO) 4.23 MIL/uL (3.63-4.92); WHITE BLOOD COUNT (AUTO) 26.1 K/uL (3.8-11.8)
[2019-04-14 09:24] LABS: CARBON DIOXIDE 25 mmol/L (21-32); CHLORIDE 91 mmol/L (98-107); CREATININE 2.4 mg/dL (0.6-1.3); POTASSIUM 3.9 mmol/L (3.5-5.1); UREA NITROGEN, BLOOD 39 mg/dL (7-18)
[2019-04-14 09:27] LABS: GLUCOSE 401 mg/dL (74-106)
[2019-04-14 09:30] LABS: ALANINE AMINOTRANSFERASE < 6 U/L (14-59); ALKALINE PHOSPHATASE 275 U/L (50-136); ASPARTATE AMINOTRANSFERASE 38 U/L (15-37); TOTAL PROTEIN, SERUM 7.5 g/dL (6.4-8.2)
[2019-04-14 09:55] LABS: EOSINOPHILS % (MANUAL) 2 % (0-8); LYMPHOCYTES % (MANUAL) 17 % (20-40); MONOCYTES % (MANUAL) 7 % (2-10); NEUTROPHILS % (MANUAL) 68 % (42-75)
[2019-04-14] MEDS: MEROPENEM 500 MG in IV NORMAL SALINE 50 ML IV SCH ×2 (10:14→21:51)
--- NOTE | 2019-04-14 10:27 | NUR ---
PAGED DOCTOR LETICIAMANDIAN REGARDING THE ABNORMAL LABS AND THE REPEAT CRITICAL HIGH BLOOD SUGAR POST INSULIN COVERAGE THIS MORNING. AWAITING CALL BACK FOR ORDERS.
[2019-04-14] MEDS ORDERED: INSULIN REGULAR, HUMAN 300 UNIT/3 ML VIAL SQ ONE (11:00)
[2019-04-14 11:13] LABS: ABG BASE EXCESS -13.9 mmol/L; ABG HCO3 16.8 mmol/L; ABG PH 7.057 (7.350-7.450); ABG PO2 133.7 mmHg (75.0-100.0); ABG SITE A-Line; ABG TOTAL HEMOGLOBIN 12.9 G/dL (12.0-16.0); COHb 1.5 % (0.5-1.5); MetHb 0.4 % (0.0-1.5); O2Hb 96.4 % (94.0-97.0); VENT MODE VENT - A/C; VT, ABG 400 mL
[2019-04-14 11:14] LABS: ABG HCO3 19.6 mmol/L; ABG PCO2 34.9 mmHg (35.0-45.0); ABG PH 7.367 (7.350-7.450); ABG PO2 328.8 mmHg (75.0-100.0); ABG SITE A-Line; ABG TOTAL HEMOGLOBIN 12.9 G/dL (12.0-16.0); COHb 1.6 % (0.5-1.5); MetHb 0.3 % (0.0-1.5); O2Hb 97.8 % (94.0-97.0); VENT MODE VENT - A/C; VT, ABG 500 mL
[2019-04-14] MEDS: INSULIN GLARGINE,HUM 300 UNITS/3 ML CARTRIDGE SQ SCH ×2 (11:19→21:00)
--- NOTE | 2019-04-14 11:20 | NUR ---
DOCTOR PAZ IN THE UNIT SPOKE TO FAMILY REGARDING PATIENT STATUS. FAMILY (DAUGHTER) REQUESTING TRANSFER TO [facility].
[2019-04-14] MEDS: ALBUTEROL SULFATE 2.5 MG/3 ML NEBU NEB PRN ×2 (11:27→21:00)
--- NOTE | 2019-04-14 12:10 | NUR ---
PAGED DR. PAZ FOR SEDATION ORDERS. PATIENT REMAINS TACHYPNIEC AND BREATHING OVER VENTILATOR. PENDING CALL BACK.
[2019-04-14] MEDS ORDERED: PROPOFOL 100 ML IV PRN (12:30)
[2019-04-14] MEDS: BLOOD SUGAR DIAGNOSTIC 1 EACH STRIP VI SCH ×2 (13:16→17:13)
[2019-04-14] MEDS: INSULIN REGULAR, HUMAN 300 UNIT/3 ML VIAL SQ PRN ×2 (13:19→17:20)
[2019-04-14] MEDS: SODIUM BICARBONATE 8.4% 100 MEQ in IV D5W 1000ML 1,000 ML IV PRN (13:40)
--- NOTE | 2019-04-14 14:00 | NUR ---
ORALIA YOUSSEF IN THE UNIT EVALUATING PATIENT.
--- NOTE | 2019-04-14 14:41 | NUR ---
DOCTOR BLAKE FOR GI CONSULT CALLED TO CONFIRM CONSULTATION TODAY.
--- NOTE | 2019-04-14 14:45 | NUR ---
WOUND CARE CONSULT: PT SEEN WITH Katia BAE N.PChristiana FOR SACRAL STAGE 3 ULCER, PRESENT ON ADMISSION. RECOMMENDATIONS FOR WOUND CARE AND SKIN PROTECTION DISCUSSED WITH NURSING STAFF. WILL SEE PRN. PT ON FIRST STEP DORA BHATIA MD IN AGREEMENT WITH PLAN OF CARE.
[2019-04-14 14:50] LABS: HEMATOCRIT 36.9 % (31.2-41.9); HEMOGLOBIN 11.6 g/dL (10.9-14.3)
[2019-04-14] MEDS: SOD FERRIC GLUC COMPLX/SUCROSE 125 MG in IV NORMAL SALINE 100 ML IV SCH (14:55)
--- NOTE | 2019-04-14 16:30 | NUR ---
LOREN JUICE PACKAGING MACHINES SETTER FOR ID IN THE UNIT TO SEE PATIENT. NEW ORDERS IN THE SYSTEM.
[2019-04-14] MEDS ORDERED: VANCOMYCIN IV 1,000 MG in IV DEXTROSE 5% 250 ML IV ONE (17:15)
--- NOTE | 2019-04-14 17:18 | NUR ---
CLINICAL PHARMACY NOTE:VANCOMYCIN DOSING Request for vancomycin dosing on 89 y/o female 165.1cm 76.2KG for suspected infection Temp 98.3F BUN 39 Scr 2.4 WBC 26.1 also on Merrem and Mycamine Will dose by levels due to poor renal function. Give vancomycin 1gm ivpb this evening. Random vancomycin ordered for tomorrow. Will continue to monitor
--- NOTE | 2019-04-14 18:09 | NUR ---
DAUGHTER SOCRATES CALLED AND SAID THAT SHE IS CONCERNED THAT THE PROPOFOL WILL SLOW DOWN THE PATIENTS BOWELS AND SHE WANTS TO REFUSE THE SEDATION UNTIL SHE SPEAKS TO THE DOCTOR. SHE HAS ALREADY CALLED THE DOCTOR HERSELF AND IS WAITING FOR A CALL BACK. EXPLAINED THAT I WILL NEED A DISCONTINUED ORDER FROM THE PHYSICIAN AND SHE STATED THAT SHE IS REFUSING THE MEDICATION.
--- NOTE | 2019-04-14 18:14 | NUR ---
PATIENT RESPIRATORY RATE ON PROPOFOL IS 26 AND PATIENT IS COMFORTABLE. PATIENT IS NO LONGER GASPING ON THE VENTILATOR.
--- NOTE | 2019-04-14 18:26 | NUR ---
PAGED DR PAZ THAT PROPOFOL HAS BEEN STOPPED DAUGHTER REFUSING PROPOFOL AND SHE WANTED TO TALK TO FIRST. CALL BACK PENDING FROM DOCTOR PAZ
--- NOTE | 2019-04-14 18:34 | NUR ---
DR. GONZALEZ CALLED BACK AND WAS NOTIFIED AND UPDATED REGARDING THE REFUSAL OF PROPOFOL AND THAT PROPOFOL WAS STOPPED. NO NEW ORDERS RECIEVED
[2019-04-14] MEDS: MICAFUNGIN SODIUM 100 MG in IV NORMAL SALINE 100 ML IV SCH (19:35)
[2019-04-14] MEDS: CARBIDOPA/LEVODOPA 25-100MG TABLET PO SCH (20:00)
--- NOTE | 2019-04-14 20:00 | NUR ---
patient is obtunded , comatose with no spontaneous eye opening , labored breathing , piccline line and arterial line intact bilaterally , gt on low intermittent suction with brownish residual , abdomen distended , slightly pale and jaundice , site of paracentsis , clean and no signs of infection
[2019-04-14] MEDS: DONEPEZIL 5 MG TABLET GT SCH (21:00)
--- NOTE | 2019-04-14 21:38 | NUR ---
dr ivey is here to see patient , given an update on patient's condition
--- NOTE | 2019-04-14 21:46 | NUR ---
dr almeida was called to refer results of abg , patient was labored breathing , gave an order to called the towel hemmer
--- NOTE | 2019-04-14 21:46 | NUR ---
med surg nurse was called, dr castro , waiting for call back
[2019-04-14] MEDS: ENTACAPONE 200 MG TABLET PO SCH (21:52)
[2019-04-14] MEDS: MELATONIN 3 MG TABLET GT SCH (21:53)
--- NOTE | 2019-04-14 23:00 | NUR ---
dr castro called back , reported latest abg , iv fluids , pressors , and pateint's condtion , no order received
[2019-04-15] VITALS (92 sets, daily range): BP systolic 99–176; BP diastolic 42–103
[2019-04-15 00:22] LABS: ABG BASE EXCESS -16.7 mmol/L; ABG HCO3 7.4 mmol/L; ABG PCO2 13.9 mmHg (35.0-45.0); ABG PH 7.347 (7.350-7.450); ABG PO2 151.6 mmHg (75.0-100.0); ABG SITE A-Line; ABG TOTAL HEMOGLOBIN 5.9 G/dL (12.0-16.0); COHb 1.3 % (0.5-1.5); MetHb 0.4 % (0.0-1.5); O2Hb 97.5 % (94.0-97.0); VENT MODE VENT - A/C; VT, ABG 500 mL
--- NOTE | 2019-04-15 00:39 | NUR ---
Maintains a patent airway * Maintains vital signs WNL * Maintains baseline ABG'S * Maintains optimal breath sounds abg getting monitored suction accordingly and breathing treatment given per order Addendum: 04/15/19 at 40 by NARCISO THEODORE RN Amended: Cher andrea. Addendum: 04/15/19 at 40 by NARCISO THEODORE RN Amended: Cher andrea. Addendum: 04/15/19 at 41 by NARCISO THEODORE RN Amended: Links added.
--- NOTE | 2019-04-15 00:41 | NUR ---
* Maintains baseline ABG's * Evidences usual mental status * Evidences usual skin color Addendum: 04/15/19 at 0041 by NARCISO THEODORE RN Amended: Links added. Addendum: 04/15/19 at 0042 by NARCISO THEODORE RN Amended: Links added.
--- NOTE | 2019-04-15 00:42 | NUR ---
* Maintains vital signs WNL * Evidences no purulent drainage from wounds, incisions, and tubes * Maintains lab values WNL Addendum: 04/15/19 at 0042 by NARCISO THEODORE RN Amended: Links added.
--- NOTE | 2019-04-15 00:42 | NUR ---
* Maintains vital signs WNL * Evidences no purulent drainage from wounds, incisions, and tubes * Maintains lab values WNL antibiotics ordered Addendum: 04/15/19 at 0042 by NARCISO THEODORE RN Amended: Links added.
[2019-04-15] MEDS: IPRATROPIUM BROMIDE 0.5 MG/2.5 ML NEBU NEB SCH ×7 (00:50→22:30)
[2019-04-15] MEDS: ALBUTEROL SULFATE 2.5 MG/3 ML NEBU NEB PRN ×4 (00:50→22:30)
[2019-04-15] MEDS: INSULIN REGULAR, HUMAN 300 UNIT/3 ML VIAL SQ PRN ×4 (01:29→18:34)
[2019-04-15] MEDS: BLOOD SUGAR DIAGNOSTIC 1 EACH STRIP VI SCH ×4 (01:33→18:15)
[2019-04-15] MEDS: PHENYLEPHRINE IV 80 MG in IV DEXTROSE 5% 250 ML IV PRN ×5 (01:35→19:12)
--- NOTE | 2019-04-15 03:45 | NUR ---
slightly open right eye with deep pain touch or positioning
[2019-04-15] MEDS: SODIUM BICARBONATE 8.4% 100 MEQ in IV D5W 1000ML 1,000 ML IV PRN ×3 (03:52→18:30)
[2019-04-15] MEDS: DOPamine IV DRIP 400 MG/250ML 250 ML IV PRN ×2 (04:01→14:04)
[2019-04-15 05:12] LABS: BASOPHILS % (AUTO) 0.1 % (0.0-2.0); EOSINOPHILS % (AUTO) 0.1 % (0.0-7.0); HEMATOCRIT 33.3 % (31.2-41.9); HEMOGLOBIN 10.6 g/dL (10.9-14.3); LYMPHOCYTES # (AUTO) 1.5 K/uL (20.0-40.0); LYMPHOCYTES % (AUTO) 8.3 % (20.5-51.5); MEAN CORPUSCULAR HEMOGLOBIN 28.4 uug (24.7-32.8); MEAN CORPUSCULAR HGB CONC 32 g/dL (32.3-35.6); MEAN CORPUSCULAR VOLUME 88.8 fL (75.5-95.3); MONOCYTES # (AUTO) 1.4 K/uL (2.0-10.0); MONOCYTES % (AUTO) 7.9 % (0.0-11.0); NEUTROPHILS # (AUTO) 14.8 K/uL (1.8-8.9); NEUTROPHILS % (AUTO) 83.6 % (38.5-71.5); PLATELET COUNT (AUTO) 142 K/uL (179-408); RED BLOOD CELL COUNT(AUTO) 3.75 MIL/uL (3.63-4.92); WHITE BLOOD COUNT (AUTO) 17.7 K/uL (3.8-11.8)
--- NOTE | 2019-04-15 05:17 | NUR ---
PT ON CONT VAN VENT WITH TRACH IN PLACE AND SECURED, PT DOES BREATH RAPID MOST OF THE TIME, A/C 15, VT 500ML, PEEP5 , 50%, ABG WAS DRAWN, LOW HCO3 7,4 , REPORTED TO NURSING, WITH GOOD OXYGENATION, PT DOES HAVE A ART/LINE, NO VENT CHANGES MADE, NEB INLINE, SUCTIONED LIGHT PALE YELL TINGE SECRETIONS, TRACH CARE DONE, ALL VENT ALARMS GOOD, CHANGE HME, PT VERY CRITICAL, AMBU BAG AT BEDSIDE.Anamika VELAZQUEZP Addendum: 04/15/19 at [address] Amended: Links added.
[2019-04-15 05:19] LABS: ALANINE AMINOTRANSFERASE < 6 U/L (14-59); ALKALINE PHOSPHATASE 186 U/L (50-136); ASPARTATE AMINOTRANSFERASE 23 U/L (15-37); BILIRUBIN,TOTAL 0.9 mg/dL (0.2-1.0); CARBON DIOXIDE 20 mmol/L (21-32); CHLORIDE 93 mmol/L (98-107); CREATININE 2.3 mg/dL (0.6-1.3); GLUCOSE 231 mg/dL (74-106); MAGNESIUM 1.6 mg/dL (1.8-2.4); PHOSPHOROUS 4.6 mg/dL (2.5-4.9); POTASSIUM 3.6 mmol/L (3.5-5.1); TOTAL PROTEIN, SERUM 6.3 g/dL (6.4-8.2); UREA NITROGEN, BLOOD 45 mg/dL (7-18)
[2019-04-15] MEDS: CARBIDOPA/LEVODOPA 25-100MG TABLET GT SCH ×4 (06:10→16:23)
[2019-04-15] MEDS: HYDROCORTISONE SOD SUCCINATE 100 MG/2 ML VIAL IV SCH ×3 (06:10→21:51)
[2019-04-15] MEDS: ENTACAPONE 200 MG TABLET GT SCH ×4 (06:11→16:23)
[2019-04-15] MEDS: LEVOTHYROXINE SODIUM 100 MCG TABLET GT SCH (06:12)
[2019-04-15] MEDS: SIMETHICONE 80 MG TAB.CHEW GT SCH (06:12)
--- NOTE | 2019-04-15 06:51 | NUR ---
DR LEO IS HERE TO SEEPATIENT GIVEN AN UPDATE ON PATIENT'S CONDITION AND BREATHING STATUS
--- NOTE | 2019-04-15 07:07 | NUR ---
cxr tech called in for stat cxr
--- NOTE | 2019-04-15 07:15 | NUR ---
Received patient on Melody vent settings a/c 15 peep 5, TV 600 o2 50%, trach shiley 6xlt. Patient currently has sodium bicarb running with 1 amp @75cc/hr, neosynephrine 300mcgmin, dopamine 10mcg/kg/min. Patient has a left hand arterial line, right Jugular tripple lumen picc, right upper arm midline. SCD's on, air mattress inflated and no urine in hopkins.
[2019-04-15 08:09] LABS: ABG BASE EXCESS -7.5 mmol/L; ABG HCO3 16.1 mmol/L; ABG PCO2 27.5 mmHg (35.0-45.0); ABG PH 7.386 (7.350-7.450); ABG PO2 135.3 mmHg (75.0-100.0); ABG SITE A-Line; ABG TOTAL HEMOGLOBIN 12.4 G/dL (12.0-16.0); COHb 1.4 % (0.5-1.5); MetHb 0.2 % (0.0-1.5); O2Hb 97.5 % (94.0-97.0); VENT MODE VENT - A/C 15; VT, ABG 500 mL
[2019-04-15] MEDS: MEROPENEM 500 MG in IV NORMAL SALINE 50 ML IV SCH ×2 (08:33→20:14)
[2019-04-15] MEDS: ACIDOPHILUS/BULGARICUS CHEW TAB GT SCH ×2 (08:40→20:37)
[2019-04-15] MEDS: PANTOPRAZOLE SODIUM 40 MG VIAL IV SCH ×2 (08:41→20:37)
[2019-04-15] MEDS: MULTIVIT, IRON, MIN NO. 8, FA TABLET GT SCH (08:41)
[2019-04-15] MEDS: CYANOCOBALAMIN 1,000 MCG TABLET GT SCH (08:41)
[2019-04-15] MEDS: ASCORBIC ACID 500 MG TABLET GT SCH (08:41)
[2019-04-15] MEDS: PROTEIN SUPPLEMENT (PROSTAT) 30 ML LIQUID GT SCH ×2 (08:43→16:23)
[2019-04-15] MEDS: INSULIN GLARGINE,HUM 300 UNITS/3 ML CARTRIDGE SQ SCH ×2 (08:46→20:45)
[2019-04-15] MEDS: Z GUARD REMEDY PASTE 57 GM TUBE TOP SCH ×2 (08:48→20:37)
[2019-04-15] MEDS ORDERED: DIGOXIN 125 MCG TABLET GT SCH (09:00)
[2019-04-15] MEDS ORDERED: EPOETIN ALFA 10,000 UNITS/ML VIAL SQ SCH (09:00)
[2019-04-15] MEDS: ACETAMINOPHEN 325 MG TABLET GT PRN (09:40)
--- NOTE | 2019-04-15 09:45 | NUR ---
Patient seen by Dr. Ascencio, discussed doing a Abdomen CT when stable for transport to CT.
[2019-04-15 10:25] LABS: TRIGLYCERIDES 53 MG/DL (30-150)
[2019-04-15] MEDS ORDERED: MAGNESIUM SULFATE/D5W 100 ML IV SCH (11:00)
--- NOTE | 2019-04-15 13:05 | NUR ---
CLINICAL PHARMACY NOTE:VANCOMYCIN DOSING To continue vancomycin dosing on 89 y/o female 165.1cm 76.2KG for suspected infection Temp 99.5F BUN 45 Scr 2.3 WBC 17.7 also on Merrem and Mycamine Vanco random pending today at 1700 Will dose by levels due to poor renal function. Last dose vanco 1gm given yesterday evening. Pending random today at 1700. Will check level when available and re-dose as needed. Will follow Addendum: 04/15/19 at 1727 by LUPE PARK Random vancomycin level 10.4. Will order another 1gm of vancomycin for this evening repeat random level tomorrow
[2019-04-15] MEDS ORDERED: ACETAMINOPHEN 650 MG SUPP.RECT RC PRN (13:15)
[2019-04-15 17:46] LABS: ABG BASE EXCESS -4.7 mmol/L; ABG HCO3 18.6 mmol/L; ABG PCO2 29.4 mmHg (35.0-45.0); ABG PO2 145.5 mmHg (75.0-100.0); ABG SITE A-Line; ABG TOTAL HEMOGLOBIN 12.1 G/dL (12.0-16.0); COHb 0.9 % (0.5-1.5); MetHb 0.1 % (0.0-1.5); O2Hb 98.5 % (94.0-97.0); VENT MODE VENT - A/C 15; VT, ABG 500 mL
[2019-04-15] MEDS ORDERED: VANCOMYCIN IV 1,000 MG in IV DEXTROSE 5% 250 ML IV ONE (18:00)
--- NOTE | 2019-04-15 18:01 | NUR ---
pt remains on full vent support, tolerating current settings fairly well. inline neb tx's given q4 with sxn'ing provided as needed. trach care/oral care provided. trach stoma little redness no blood, no drainage noted. vent alarms audible, checked and reset. bvm at bedside. cont to monitor and report any changes. cont with current RT orders.
[2019-04-15 18:03] LABS: BASOPHILS # (AUTO) 0.1 K/uL (0.0-8.0); BASOPHILS % (AUTO) 0.6 % (0.0-2.0); EOSINOPHILS % (AUTO) 0.1 % (0.0-7.0); HEMATOCRIT 33.8 % (31.2-41.9); HEMOGLOBIN 10.7 g/dL (10.9-14.3); LYMPHOCYTES # (AUTO) 2.1 K/uL (20.0-40.0); LYMPHOCYTES % (AUTO) 12.5 % (20.5-51.5); MEAN CORPUSCULAR HEMOGLOBIN 28.1 uug (24.7-32.8); MEAN CORPUSCULAR HGB CONC 32 g/dL (32.3-35.6); MEAN CORPUSCULAR VOLUME 88.6 fL (75.5-95.3); MONOCYTES % (AUTO) 5.8 % (0.0-11.0); NEUTROPHILS # (AUTO) 13.6 K/uL (1.8-8.9); PLATELET COUNT (AUTO) 150 K/uL (179-408); RED BLOOD CELL COUNT(AUTO) 3.81 MIL/uL (3.63-4.92); WHITE BLOOD COUNT (AUTO) 16.8 K/uL (3.8-11.8)
[2019-04-15] MEDS: MICAFUNGIN SODIUM 100 MG in IV NORMAL SALINE 100 ML IV SCH (18:05)
[2019-04-15 18:13] LABS: ALANINE AMINOTRANSFERASE < 6 U/L (14-59); ALKALINE PHOSPHATASE 175 U/L (50-136); ASPARTATE AMINOTRANSFERASE 17 U/L (15-37); BILIRUBIN,TOTAL 0.8 mg/dL (0.2-1.0); CARBON DIOXIDE 23 mmol/L (21-32); CHLORIDE 87 mmol/L (98-107); CREATININE 2.7 mg/dL (0.6-1.3); GLUCOSE 178 mg/dL (74-106); PHOSPHOROUS 4.6 mg/dL (2.5-4.9); POTASSIUM 3.6 mmol/L (3.5-5.1); TOTAL PROTEIN, SERUM 6.5 g/dL (6.4-8.2); UREA NITROGEN, BLOOD 49 mg/dL (7-18)
[2019-04-15] MEDS: ALBUMIN HUMAN 25% 25 GM in PREMIXED 1 EACH IV SCH ×2 (18:19→23:46)
--- NOTE | 2019-04-15 19:30 | NUR ---
Report received. Patient with trache to vent with same settings. Sat 99-100%. Opens eyes and grimaces to pain. On Neosynephrine and Dopamine drips for BP support via RIJ TLC. See IV spread sheet for rates/dosages. Assessment done. With generalized edema. Abdomen markedly distended; no bowel sounds. GT to low intermittent suction with dark brown drainage. Addendum: 04/16/19 at 0659 by FRANK BURTON RN Amended: Links added.
--- NOTE | 2019-04-15 20:05 | NUR ---
Patient was seen by Pinky CALL CENTER OPERATOR, , Sonu and Dr. Murray today. Patient continues to be on Neosynephrine 300, and Dopamine @ 5mcg/kg/min after weaning attempts from Dopamine. Patient continues to be on chronic ventilator settings TV 500, a/c 15, 50% oxygen, peep 5. Vieyra has minimal drainage, and central line and arterial intact and working properly. bed inflated and scd''s on.
[2019-04-15] MEDS: CARBIDOPA/LEVODOPA 25-100MG TABLET PO SCH (20:16)
[2019-04-15] MEDS: ENTACAPONE 200 MG TABLET PO SCH (20:17)
[2019-04-15] MEDS: MELATONIN 3 MG TABLET GT SCH (20:18)
[2019-04-15] MEDS: DONEPEZIL 5 MG TABLET GT SCH (20:37)
[2019-04-16] VITALS (89 sets, daily range): BP systolic 71–149; BP diastolic 35–73
[2019-04-16] MEDS: BLOOD SUGAR DIAGNOSTIC 1 EACH STRIP VI SCH ×5 (00:20→23:13)
[2019-04-16] MEDS: INSULIN REGULAR, HUMAN 300 UNIT/3 ML VIAL SQ PRN ×2 (00:21→05:28)
[2019-04-16] MEDS: PHENYLEPHRINE IV 80 MG in IV DEXTROSE 5% 250 ML IV PRN ×3 (01:29→21:07)
[2019-04-16] MEDS: IPRATROPIUM BROMIDE 0.5 MG/2.5 ML NEBU NEB SCH ×6 (02:30→23:03)
[2019-04-16] MEDS: ALBUTEROL SULFATE 2.5 MG/3 ML NEBU NEB PRN ×2 (02:31→07:49)
[2019-04-16 05:14] LABS: BASOPHILS # (AUTO) 0.1 K/uL (0.0-8.0); BASOPHILS % (AUTO) 0.5 % (0.0-2.0); EOSINOPHILS % (AUTO) 0.1 % (0.0-7.0); HEMATOCRIT 30.4 % (31.2-41.9); LYMPHOCYTES # (AUTO) 2.5 K/uL (20.0-40.0); LYMPHOCYTES % (AUTO) 18.9 % (20.5-51.5); MEAN CORPUSCULAR HEMOGLOBIN 28.5 uug (24.7-32.8); MEAN CORPUSCULAR HGB CONC 33 g/dL (32.3-35.6); MEAN CORPUSCULAR VOLUME 86.6 fL (75.5-95.3); MONOCYTES # (AUTO) 0.8 K/uL (2.0-10.0); MONOCYTES % (AUTO) 5.8 % (0.0-11.0); NEUTROPHILS % (AUTO) 74.7 % (38.5-71.5); PLATELET COUNT (AUTO) 118 K/uL (179-408); RED BLOOD CELL COUNT(AUTO) 3.51 MIL/uL (3.63-4.92); WHITE BLOOD COUNT (AUTO) 13.3 K/uL (3.8-11.8)
[2019-04-16] MEDS: ALBUMIN HUMAN 25% 25 GM in PREMIXED 1 EACH IV SCH ×2 (05:21→12:07)
[2019-04-16] MEDS: HYDROCORTISONE SOD SUCCINATE 100 MG/2 ML VIAL IV SCH ×3 (05:21→21:03)
[2019-04-16 05:35] LABS: ALANINE AMINOTRANSFERASE < 6 U/L (14-59); ALKALINE PHOSPHATASE 137 U/L (50-136); ASPARTATE AMINOTRANSFERASE 14 U/L (15-37); BILIRUBIN,TOTAL 0.9 mg/dL (0.2-1.0); CARBON DIOXIDE 23 mmol/L (21-32); CHLORIDE 83 mmol/L (98-107); CREATININE 2.9 mg/dL (0.6-1.3); GLUCOSE 161 mg/dL (74-106); POTASSIUM 3.7 mmol/L (3.5-5.1); TOTAL PROTEIN, SERUM 6.6 g/dL (6.4-8.2); UREA NITROGEN, BLOOD 55 mg/dL (7-18)
--- NOTE | 2019-04-16 06:00 | NUR ---
Attempted to dc Neosynephrine drip, but BP dropped to 70'; drip kept at 60 mcg/min. Dopamine drip at 2 mcg/kg/min.
[2019-04-16] MEDS: ENTACAPONE 200 MG TABLET GT SCH (06:30)
[2019-04-16] MEDS: CARBIDOPA/LEVODOPA 25-100MG TABLET GT SCH (06:30)
[2019-04-16] MEDS: LEVOTHYROXINE SODIUM 100 MCG TABLET GT SCH (06:52)
--- NOTE | 2019-04-16 07:00 | NUR ---
GT meds not given. Abdomen markedly distended and leaking noted around site. New dressing applied. Addendum: 04/16/19 at 0729 by FRANK BURTON RN Amended: Links added.
--- NOTE | 2019-04-16 07:30 | NUR ---
RECIEVED PT IN BED, OBTUNDED, RESPONSIVE AND OPENS EYES TO DEEP PAINFUL STIMULI. ALL EXTREMETIES FLACCID. ABP IS HOLDING ABOVE 100SYSTOLIC. PT ON 2 VASOPRESSORS, NEOSYNEPHRINE AT 60MCG/MIN AND DOPAMINE AT 2MCG/KG /MIN INFUSING WELL ON THE RIJ. HR IS IN AND OUT OF PACING, SR NO ECTOPY. PT HAS A TRACHE SHILEY 6, CONNECTED TO VENTILATOR WITH A SETTING OF AC-15, VT-500, PEEP-5 AND FIO2-50%. PT RESPIRATION IS SHALLOW AND LABORED, SATURATION IS 100. AFEBRILE.
[2019-04-16] MEDS: SODIUM BICARBONATE 8.4% 100 MEQ in IV NS 1000 ML 1,000 ML IV PRN ×2 (07:51→22:22)
[2019-04-16] MEDS: MEROPENEM 500 MG in IV NORMAL SALINE 50 ML IV SCH ×2 (08:19→20:15)
[2019-04-16] MEDS: INSULIN GLARGINE,HUM 300 UNITS/3 ML CARTRIDGE SQ SCH (09:00)
--- NOTE | 2019-04-16 09:00 | NUR ---
LANTUS NOT GIVEN . PT IS NPO.
--- NOTE | 2019-04-16 09:30 | NUR ---
SEEN AND EXAMINED BY DR PAZ WITH NEW ORDERS.
[2019-04-16] MEDS ORDERED: IV SODIUM CHLORIDE 3% 500 ML IV PRN (11:00)
[2019-04-16] MEDS: PANTOPRAZOLE SODIUM 40 MG VIAL IV SCH ×2 (11:35→20:15)
[2019-04-16] MEDS: Z GUARD REMEDY PASTE 57 GM TUBE TOP SCH ×2 (11:37→21:05)
--- NOTE | 2019-04-16 11:39 | NUR ---
CLINICAL PHARMACY NOTE:VANCOMYCIN DOSING To continue vancomycin dosing on 89 y/o female 165.1cm 76.2KG for suspected infection Temp 98.6F BUN 55 Scr 2.9 WBC 13.3 also on Merrem and Mycamine Vanco random pending today at 1700 Will dose by levels due to poor renal function. Last dose vanco 1gm given yesterday evening at 1800. Pending random today at 1700. Will check level when available and re-dose as needed. Will follow
--- NOTE | 2019-04-16 14:00 | NUR ---
DAUGHTER WAS ALLOWED TO STAY IN THE ROOM BY NURSING OFFICE BETWEEN THE QUITETIME HOURS WITH A CONDITION TO BE NOT DISRUPTIVE WITH PATIENT CARE.
--- NOTE | 2019-04-16 15:20 | NUR ---
CONSENT SIGNED FOR DIALYSIS CATHETER INSERTION BY THE DAUGHTER. DR JOYNER DID THE PROCEDURE AT THE BEDSIDE AND PERFORMED AT THE RIGHT GROIN.
[2019-04-16] MEDS: DOPamine IV DRIP 400 MG/250ML 250 ML IV PRN (17:07)
--- NOTE | 2019-04-16 17:30 | NUR ---
PT'S DAUGHTER UPSET ABOUT HOLDING THE MEDICATION. EXPLAINED TO DAUGHTER THAT MD HELD IT BECAUSE GT SITE IS LEAKING AND ABDOMEN DISTENDED. DAUGHTER STARTED TO SCREAM AND BEING VERY DISRESPECTFUL. NOTIFIED MY BUNCH TRIMMER MOLD AND ALSO THE SECURITY.
--- NOTE | 2019-04-16 18:00 | NUR ---
DOPAMINE IS TAPERED OFF. ABP IS HOLDING GOOD. PM CARE RENDERED.
--- NOTE | 2019-04-16 18:00 | NUR ---
NO URINE OUTPUT NOTED. MD IS AWARE.
[2019-04-16] MEDS: MICAFUNGIN SODIUM 100 MG in IV NORMAL SALINE 100 ML IV SCH (18:16)
--- NOTE | 2019-04-16 19:20 | NUR ---
PT RECEIVED ON VAN VENTILATOR. CURRENT VENT SETTINGS ARE AC 15, 500, PEEP +5, FIO2 50%. PT HAS A SHILEY #6 XLT-DISTAL CUFFED TRACH. NO VENT CHANGES MADE AT THIS TIME. VENT ALARMS CHECKED, ARE ON AND FUNCTIONING PROPERLY. ADMINISTERED Q4 TX ORDERED. SUCTIONED SMALL AMOUNT OF THICK, PALE SECRETIONS. HME CHANGED. AMBU BAG AND BACK UP TRACH ARE AT BEDSIDE. VENT PLUGGED INTO RED EMERGENCY OUTLET. WILL CONTINUE TO MONITOR.
--- NOTE | 2019-04-16 19:45 | NUR ---
Received pt HOB elevated, on specialty mattress bed, unable to follow simple commands. Pt withdraws to pain, gag reflex noted. Pt on neosynenephrine drip running at 12.15 ml/hr for BP support via RIJ TLC. Pt trach to vent with settings: AC 15, TV 500, PEEP 5, FIO2 40%. Pt noted to have shallow, labored breathing. O2 sats up to 100%. Pt V-pacing on monitor. Abdomen round and distended, hypoactive bowel sounds noted. Full assessment completed. VSS, afebrile. Pt turned and repositioned. Safety and aspiration precautions maintained. Continue to monitor. Addendum: 04/16/19 at 2233 by SUNADR BRAND RN Amended: Links added.
[2019-04-16] MEDS: MELATONIN 3 MG TABLET GT SCH (21:00)
[2019-04-17] VITALS (96 sets, daily range): BP systolic 85–163; BP diastolic 36–88
[2019-04-17 00:11] LABS: ABG BASE EXCESS -2.8 mmol/L; ABG PCO2 32.7 mmHg (35.0-45.0); ABG PH 7.425 (7.350-7.450); ABG PO2 262.5 mmHg (75.0-100.0); ABG SITE A-Line; ABG TOTAL HEMOGLOBIN 10.4 G/dL (12.0-16.0); COHb 0.9 % (0.5-1.5); MetHb 0.3 % (0.0-1.5); O2Hb 98.5 % (94.0-97.0); VENT MODE VENT - A/C; VT, ABG 500 mL
[2019-04-17] MEDS: IPRATROPIUM BROMIDE 0.5 MG/2.5 ML NEBU NEB SCH ×5 (02:42→19:30)
[2019-04-17 05:08] LABS: BASOPHILS # (AUTO) 0.1 K/uL (0.0-8.0); BASOPHILS % (AUTO) 0.4 % (0.0-2.0); EOSINOPHILS % (AUTO) 0.1 % (0.0-7.0); HEMOGLOBIN 10.3 g/dL (10.9-14.3); LYMPHOCYTES # (AUTO) 4.4 K/uL (20.0-40.0); LYMPHOCYTES % (AUTO) 27.7 % (20.5-51.5); MEAN CORPUSCULAR HEMOGLOBIN 28.3 uug (24.7-32.8); MEAN CORPUSCULAR HGB CONC 32 g/dL (32.3-35.6); MEAN CORPUSCULAR VOLUME 87.7 fL (75.5-95.3); MONOCYTES # (AUTO) 0.8 K/uL (2.0-10.0); NEUTROPHILS # (AUTO) 10.7 K/uL (1.8-8.9); NEUTROPHILS % (AUTO) 66.8 % (38.5-71.5); PLATELET COUNT (AUTO) 148 K/uL (179-408); RED BLOOD CELL COUNT(AUTO) 3.65 MIL/uL (3.63-4.92); WHITE BLOOD COUNT (AUTO) 15.9 K/uL (3.8-11.8)
[2019-04-17 05:17] LABS: CARBON DIOXIDE 25 mmol/L (21-32); CHLORIDE 89 mmol/L (98-107); CREATININE 3.1 mg/dL (0.6-1.3); GLUCOSE 96 mg/dL (74-106); MAGNESIUM 2.1 mg/dL (1.8-2.4); PHOSPHOROUS 6.1 mg/dL (2.5-4.9); POTASSIUM 3.7 mmol/L (3.5-5.1); UREA NITROGEN, BLOOD 59 mg/dL (7-18)
[2019-04-17] MEDS: BLOOD SUGAR DIAGNOSTIC 1 EACH STRIP VI SCH ×3 (05:58→18:27)
[2019-04-17] MEDS: HYDROCORTISONE SOD SUCCINATE 100 MG/2 ML VIAL IV SCH ×3 (05:58→21:05)
[2019-04-17 06:11] LABS: BAND % (MANUAL) 2 % (0-10); LYMPHOCYTES % (MANUAL) 18 % (20-40); MONOCYTES % (MANUAL) 2 % (2-10); NEUTROPHILS % (MANUAL) 69 % (42-75)
--- NOTE | 2019-04-17 06:35 | NUR ---
No acute change throughout the night. Pt tolerating current vent settings. No desats noted. Continuous IVF running, NEOSYNEPHRINE at 66 mcg/min. AM care rendered, kept clean and dry. Q2H repositioning. Continue plan of care. Will endorse accordingly.
[2019-04-17] MEDS: LEVOTHYROXINE SODIUM 100 MCG TABLET GT SCH (07:00)
[2019-04-17 07:07] LABS: HEPATITIS B SURFACE AB Non Reactive (.); HEPATITIS B SURFACE AG Negative (Negative)
--- NOTE | 2019-04-17 08:00 | NUR ---
Report received from MILLIE Barker.Pt remains responsive to tactile stimuli.Respiration slightly labored.Shiley 6 intact,patent,connected to vent.SR on monitor.Remains on Neosenephrine gtt at 65 mcg/min to support BP.Neosenephrine gtt titrated to [place]
[2019-04-17] MEDS: MEROPENEM 500 MG in IV NORMAL SALINE 50 ML IV SCH ×2 (08:04→20:09)
[2019-04-17] MEDS: ALBUTEROL SULFATE 2.5 MG/3 ML NEBU NEB PRN ×2 (08:12→13:26)
[2019-04-17] MEDS: PANTOPRAZOLE SODIUM 40 MG VIAL IV SCH ×2 (09:00→21:05)
[2019-04-17] MEDS: Z GUARD REMEDY PASTE 57 GM TUBE TOP SCH ×2 (09:00→21:03)
--- NOTE | 2019-04-17 09:00 | NUR ---
Seen,examined by .
[2019-04-17] MEDS ORDERED: NEPRO 1000 ML GT PRN (11:15)
--- NOTE | 2019-04-17 13:00 | NUR ---
Pt daughter at bedside.Updated on pt status.Pt daughter express her concern regarding her mother is being NPO,not getting her parkinson medication.Called ,left message.
[2019-04-17] MEDS: SODIUM BICARBONATE 8.4% 100 MEQ in IV NS 1000 ML 1,000 ML IV PRN (13:07)
--- NOTE | 2019-04-17 13:57 | NUR ---
Clinical Social Work Note Met with patient's daughter at the request of Alina, Director of CCU. Cresencio Wasserman, Director of ED and Acute Care Services was present. Patient's daughter alleged that nurses are dismissive and " refused to provide her with information". Patient mentioned her rights were being violated. This verse writer advised that we need to respect the rights of all of our patients. Patient said that " her mother had become terminal at our hospital". She said she was out on a stress leave from her employment and was suing them for harrassment. She said she was glad she had a number to call if she felt her rights were being violated. She was given this director's number by Alina, director, last night. Reminded the daughter about her responsibilities for taking care of herself during a time like this. She was more subdued at this meeting than what has been reported. She did refuse to leave her mother's room for a meeting with administration and said " my mother has very limited time left. I refuse to leave the room".
[2019-04-17] MEDS ORDERED: CARBIDOPA/LEVODOPA 25-100MG TABLET PO SCH (17:00)
--- NOTE | 2019-04-17 17:43 | NUR ---
Pt daughter called ,informed regarding planned hemodialysis.Pt daughter have given the consent for dialysis.
--- NOTE | 2019-04-17 17:51 | NUR ---
Called dr.Sam Segovia,left message regarding Abdominal Ct scan order clarification.
[2019-04-17] MEDS: PHENYLEPHRINE IV 80 MG in IV DEXTROSE 5% 250 ML IV PRN ×2 (17:54→18:24)
[2019-04-17] MEDS: ENTACAPONE 200 MG TABLET GT SCH ×2 (17:55→21:02)
[2019-04-17] MEDS: MICAFUNGIN SODIUM 100 MG in IV NORMAL SALINE 100 ML IV SCH (18:00)
[2019-04-17] MEDS: CARBIDOPA/LEVODOPA 25-100MG TABLET PO SCH (18:00)
--- NOTE | 2019-04-17 18:29 | NUR ---
Seen,examined by Christie YOUSSEF for .Clarified CT order.
[2019-04-17] MEDS: MELATONIN 3 MG TABLET GT SCH (21:01)
[2019-04-18] VITALS (95 sets, daily range): BP systolic 69–147; BP diastolic 22–97
[2019-04-18] MEDS: IPRATROPIUM BROMIDE 0.5 MG/2.5 ML NEBU NEB SCH ×6 (00:17→23:26)
[2019-04-18] MEDS: BLOOD SUGAR DIAGNOSTIC 1 EACH STRIP VI SCH ×4 (01:06→17:58)
[2019-04-18] MEDS: PHENYLEPHRINE IV 80 MG in IV DEXTROSE 5% 250 ML IV PRN ×2 (01:34→18:49)
[2019-04-18 05:45] LABS: BASOPHILS # (AUTO) 0.1 K/uL (0.0-8.0); BASOPHILS % (AUTO) 0.8 % (0.0-2.0); HEMOGLOBIN 10.1 g/dL (10.9-14.3); LYMPHOCYTES # (AUTO) 2.5 K/uL (20.0-40.0); LYMPHOCYTES % (AUTO) 27.3 % (20.5-51.5); MEAN CORPUSCULAR HEMOGLOBIN 28.4 uug (24.7-32.8); MEAN CORPUSCULAR HGB CONC 33 g/dL (32.3-35.6); MEAN CORPUSCULAR VOLUME 87.1 fL (75.5-95.3); MONOCYTES # (AUTO) 0.3 K/uL (2.0-10.0); MONOCYTES % (AUTO) 3.7 % (0.0-11.0); NEUTROPHILS # (AUTO) 6.3 K/uL (1.8-8.9); NEUTROPHILS % (AUTO) 68.2 % (38.5-71.5); PLATELET COUNT (AUTO) 93 K/uL (179-408); RED BLOOD CELL COUNT(AUTO) 3.55 MIL/uL (3.63-4.92); WHITE BLOOD COUNT (AUTO) 9.3 K/uL (3.8-11.8)
--- NOTE | 2019-04-18 05:52 | NUR ---
PT ON CONT VAN VENT WITH SHILEY # [address] AND SECURED, WITH SAME CURRENT VENT SETTINGS, PT DOES ASSIST AT TIMES, SUCTIONED LIGHT PALE YELL TINGE SECRETIONS, CHECK CUFF, CHANGE HME, NEB INLINE WITH ATROVENT , TOLL WELL, ALL VENT ALARMS GOOD, NO VENT CHANGES MADE, PT HAD DIALYSIS , PT ALSO WENT TO CT/SCAN WITH RT, PT VERY WEAK, AMBU BAG AT BEDSIDE.Anamika LNAE UNSTACKER Addendum: 04/18/[address] Amended: Links added.
[2019-04-18 05:57] LABS: ALANINE AMINOTRANSFERASE < 6 U/L (14-59); ALKALINE PHOSPHATASE 104 U/L (50-136); ASPARTATE AMINOTRANSFERASE 20 U/L (15-37); BILIRUBIN,TOTAL 1.1 mg/dL (0.2-1.0); CARBON DIOXIDE 22 mmol/L (21-32); CHLORIDE 94 mmol/L (98-107); GLUCOSE 107 mg/dL (74-106); MAGNESIUM 2.1 mg/dL (1.8-2.4); PHOSPHOROUS 5.9 mg/dL (2.5-4.9); POTASSIUM 3.8 mmol/L (3.5-5.1); TOTAL PROTEIN, SERUM 6.1 g/dL (6.4-8.2); UREA NITROGEN, BLOOD 61 mg/dL (7-18)
[2019-04-18] MEDS: LEVOTHYROXINE SODIUM 100 MCG TABLET GT SCH (06:43)
[2019-04-18] MEDS: HYDROCORTISONE SOD SUCCINATE 100 MG/2 ML VIAL IV SCH ×3 (06:43→21:47)
--- NOTE | 2019-04-18 07:15 | NUR ---
Received report from Juanito wilson RN. Patient is asleep in in bed, patient responsive to touch. Respirations non labored. Patient trach to Vent on Ac of 15, FIo2 of 40, tidal volume of 500, and a PEEP of 5. Shiley 6 intact no bleeding. Patient with an arterial blood pressure of 115/43 and heart rate of 75, remains supported by Neosenephrine at 25mcg/hr. Will continue to monitor.
[2019-04-18] MEDS: IV NORMAL SALINE 250 ML IV PRN (07:31)
--- NOTE | 2019-04-18 07:32 | NUR ---
SEEN AND EXAMINED BY DR PEARSON WITH NEW ORDERS.
[2019-04-18] MEDS: ALBUTEROL SULFATE 2.5 MG/3 ML NEBU NEB PRN ×2 (07:41→20:02)
[2019-04-18] MEDS: PANTOPRAZOLE SODIUM 40 MG VIAL IV SCH ×2 (08:58→21:47)
[2019-04-18] MEDS: MEROPENEM 500 MG in IV NORMAL SALINE 50 ML IV SCH (08:58)
[2019-04-18] MEDS: CARBIDOPA/LEVODOPA 25-100MG TABLET PO SCH ×4 (08:59→21:51)
[2019-04-18] MEDS: ENTACAPONE 200 MG TABLET GT SCH ×4 (08:59→21:50)
[2019-04-18] MEDS ORDERED: MIDODRINE HCL 5 MG TABLET PO SCH (09:00)
[2019-04-18] MEDS: Z GUARD REMEDY PASTE 57 GM TUBE TOP SCH ×2 (09:01→21:47)
--- NOTE | 2019-04-18 09:12 | NUR ---
SEEN AND EXAMINED BY CORY YOUSSEF, ID. NO ORDERS MADE.
--- NOTE | 2019-04-18 10:00 | NUR ---
SHIFT PRODUCTION ASSOCIATE STATED THAT TRANSFER PAPERS SENT TO [facility] WITH THEIR WOOD MILLING MACHINE TENDER. SHE WILL CONTINUE TO FOLOOW UP. DR PEARSON IS AWARE.
[2019-04-18] MEDS: MIDODRINE HCL 2.5 MG TABLET PO SCH ×3 (11:24→21:49)
[2019-04-18 12:28] LABS: ABG BASE EXCESS -2.4 mmol/L; ABG HCO3 21.2 mmol/L; ABG PCO2 32.1 mmHg (35.0-45.0); ABG PH 7.437 (7.350-7.450); ABG PO2 126.3 mmHg (75.0-100.0); ABG SITE A-Line; ABG TOTAL HEMOGLOBIN 10.8 G/dL (12.0-16.0); COHb 1.1 % (0.5-1.5); MetHb 0.4 % (0.0-1.5); O2Hb 97.6 % (94.0-97.0); VENT MODE VENT - A/C; VT, ABG 500 mL
[2019-04-18 12:31] LABS: ABG BASE EXCESS -2.1 mmol/L; ABG PCO2 30.1 mmHg (35.0-45.0); ABG PH 7.461 (7.350-7.450); ABG PO2 145.7 mmHg (75.0-100.0); ABG SITE A-Line; ABG TOTAL HEMOGLOBIN 10.1 G/dL (12.0-16.0); COHb 0.9 % (0.5-1.5); MetHb 0.3 % (0.0-1.5); O2Hb 98.2 % (94.0-97.0); VENT MODE VENT - A/C; VT, ABG 500 mL
--- NOTE | 2019-04-18 12:36 | NUR ---
SEEN AND EXAMINED BY DR ROMANO, NO ORDERS MADE.
[2019-04-18] MEDS ORDERED: CEFTAZIDIME 2 G in IV DEXTROSE 5% 100 ML IV SCH (13:45)
--- NOTE | 2019-04-18 16:07 | NUR ---
SEEN AND EXAINED BY DR HOFF, NO NEW ORDERS MADE.
[2019-04-18] MEDS: CEFTAZIDIME 1 G in IV DEXTROSE 5% 50 ML IV SCH (16:22)
[2019-04-18] MEDS: MICAFUNGIN SODIUM 100 MG in IV NORMAL SALINE 100 ML IV SCH (17:52)
[2019-04-18] MEDS ORDERED: MEROPENEM 500 MG in IV NORMAL SALINE 50 ML IV SCH (20:00)
[2019-04-18] MEDS: MELATONIN 3 MG TABLET GT SCH (21:50)
[2019-04-19] VITALS (95 sets, daily range): BP systolic 50–150; BP diastolic 31–131
[2019-04-19] MEDS: BLOOD SUGAR DIAGNOSTIC 1 EACH STRIP VI SCH ×5 (00:02→23:48)
--- NOTE | 2019-04-19 00:02 | NUR ---
PT ON CONT VAN VENT WITH TRACH IN PLACE AND SECURED, WITH SAME CURRENT VENT SETTINGS, PT DOES ASSIST AT TIMES, CHECK CUFF, SUCTIONED LIGHT PALE YELL TINGE SECRETIONS, TRACH CARE DONE, ALL VENT AALRMS GOOD, NO VENT CHANGES MADE, NEB INLINE WITH KARLIE KHAN WELL, AMBU BAG ATBEDSIDE.Anamika VELAZQUEZP Addendum: 04/19/19 at [address] Amended: Links added.
[2019-04-19] MEDS: IPRATROPIUM BROMIDE 0.5 MG/2.5 ML NEBU NEB SCH ×6 (03:26→23:26)
[2019-04-19] MEDS: IV NORMAL SALINE 250 ML IV PRN (04:28)
[2019-04-19 05:36] LABS: BASOPHILS # (AUTO) 0.1 K/uL (0.0-8.0); BASOPHILS % (AUTO) 0.4 % (0.0-2.0); HEMATOCRIT 29.2 % (31.2-41.9); HEMOGLOBIN 9.3 g/dL (10.9-14.3); LYMPHOCYTES # (AUTO) 2.4 K/uL (20.0-40.0); LYMPHOCYTES % (AUTO) 18.6 % (20.5-51.5); MEAN CORPUSCULAR HEMOGLOBIN 28.1 uug (24.7-32.8); MEAN CORPUSCULAR HGB CONC 32 g/dL (32.3-35.6); MEAN CORPUSCULAR VOLUME 87.8 fL (75.5-95.3); MONOCYTES # (AUTO) 0.7 K/uL (2.0-10.0); MONOCYTES % (AUTO) 5.2 % (0.0-11.0); NEUTROPHILS # (AUTO) 9.8 K/uL (1.8-8.9); NEUTROPHILS % (AUTO) 75.8 % (38.5-71.5); PLATELET COUNT (AUTO) 119 K/uL (179-408); RED BLOOD CELL COUNT(AUTO) 3.32 MIL/uL (3.63-4.92)
[2019-04-19 05:40] LABS: CARBON DIOXIDE 19 mmol/L (21-32); CHLORIDE 100 mmol/L (98-107); CREATININE 2.7 mg/dL (0.6-1.3); GLUCOSE 95 mg/dL (74-106); MAGNESIUM 1.8 mg/dL (1.8-2.4); PHOSPHOROUS 5.6 mg/dL (2.5-4.9); POTASSIUM 3.4 mmol/L (3.5-5.1); UREA NITROGEN, BLOOD 56 mg/dL (7-18)
[2019-04-19] MEDS ORDERED: TPN/PPN PER PHARMACY IV PRN (07:15)
--- NOTE | 2019-04-19 07:20 | NUR ---
Dr. Segovia at bedside to see patient.
--- NOTE | 2019-04-19 07:20 | NUR ---
Received report from retail shift leader nurse, patient on kaley vent a/c 15 TV500 Peep 5, o2 40% saturating 100%. Patient is pacing @ 75bpm. Vieyra has scant amount of urine, air mattress inflated and neosynephrine running and a line to keep open for antibiotics. SCD's on. Continuous BP, spO2 and HR monitoring. Patients eyes are open and does not appear to be in any distress at this time. noted are arterial line readings that appear to be declining, line zeroe'd.
[2019-04-19] MEDS: HYDROCORTISONE SOD SUCCINATE 100 MG/2 ML VIAL IV SCH ×3 (07:27→21:26)
[2019-04-19] MEDS: MIDODRINE HCL 2.5 MG TABLET PO SCH ×3 (07:29→21:29)
[2019-04-19] MEDS: LEVOTHYROXINE SODIUM 100 MCG TABLET GT SCH (07:29)
[2019-04-19] MEDS ORDERED: IV NORMAL SALINE 500 ML IV ONE (08:30)
--- NOTE | 2019-04-19 08:30 | NUR ---
received orders from dr almeida to give bolus 500cc ns, and take the peep off, informed respiratory therapy.l
--- NOTE | 2019-04-19 08:37 | NUR ---
RT MD ORDER PEEP TO 0
[2019-04-19 08:58] LABS: *BILIRUBIN,URIN 1+ (NEGATIVE); *CLARITY,URINE CLEAR (CLEAR); *KETONES,URINE TRACE (NEGATIVE); *UROBILINOGEN,URINE 0.2 E.U./dl (NORMAL); LEUKOCYTE ESTERASE ,URINE TRACE (NEGATIVE); NITRITE, URINE NEGATIVE (NEGATIVE); UGLUCOSE NEGATIVE (NEGATIVE)
[2019-04-19 09:00] LABS: *BLOOD, URINE TRACE LYSED (NEGATIVE)
--- NOTE | 2019-04-19 09:00 | NUR ---
Contacted dr shields for orders due to decreasing bp order received for 1L bolus and addition of 2nd pressor if needed.
[2019-04-19 09:01] LABS: *COLOR,URINE DARK YELLOW (YELLOW)
[2019-04-19] MEDS ORDERED: IV NS 1000 ML 1,000 ML IV ONE (09:15)
[2019-04-19] MEDS: ENTACAPONE 200 MG TABLET GT SCH ×4 (09:49→21:30)
[2019-04-19] MEDS: PANTOPRAZOLE SODIUM 40 MG VIAL IV SCH ×2 (09:49→21:27)
[2019-04-19] MEDS: CARBIDOPA/LEVODOPA 25-100MG TABLET PO SCH ×4 (09:50→21:28)
[2019-04-19] MEDS: Z GUARD REMEDY PASTE 57 GM TUBE TOP SCH ×2 (09:50→21:27)
--- NOTE | 2019-04-19 10:00 | NUR ---
ABG line repositioned and flushed as initial blood withdrawal was not possible. Assistance by 2nd nurse requested, line flushed and abg drawn and given to RT.
[2019-04-19 10:07] LABS: BACTERIA,URINE FEW /HPF (NONE SEEN); RBC,URINE 0-3 /HPF (0-3); SQUAMOUS EPITHELIAL CELL,UR NONE SEEN /HPF (NONE SEEN); WBC,URINE 0-3 /HPF (0-3); YEAST,URINE FEW /HPF (NONE SEEN)
[2019-04-19 10:08] LABS: URIC ACID CRYSTALS,URINE RARE /HPF (NONE SEEN)
--- NOTE | 2019-04-19 10:15 | NUR ---
RT POST ABG DECREASED FIO2 TO 30%
[2019-04-19 10:35] LABS: *CREATININE,URINE 155.3 mg/dL (30-125); *URINE TOTAL PROTEIN RANDOM 171.9 mg/dL (<150/24HR)
--- NOTE | 2019-04-19 10:40 | NUR ---
Patient's daughter at bedside questioning what was done to mother when the caregiver was asked to step out of the room to get the a-line to get abg. Daughter states that the blood pressure readings are high and that we are incorrectly increasing the neosynephrine.
--- NOTE | 2019-04-19 10:45 | NUR ---
Patients daughter closed the curtain to the patients room. This telegraphic typewriter mechanic entered room and informed her that the patient is on direct observation in this unit and cannot be behind closed doors, the daughter stated that "it doesn't really matter soon anyways, I just want to have some privacy with my mother". The curtains were opened up and this telegraphic typewriter mechanic continued to monitor patient.
--- NOTE | 2019-04-19 12:00 | NUR ---
Temperature was declined to 96.6, JEM taylor initiated.
--- NOTE | 2019-04-19 12:26 | NUR ---
Clinical Pharmacy Note: TPN per Pharmacy Subjective: To start TPN via central line on this Dialysis patient for GT leakage per MD note. Per Dietitian has been off of TF for about a week & continues with diarrhea. Patient is also on IV pressors. Per MD (Dr. Stern) note on 04/19: Distended Abdomen, h/o cirrhosis, secondary to ascites Dietitian TPN recommendations (see dietitian Gennas note): -Day 1: Initiate conservatively with 5% Amino acid/20% Dextrose @ 40mL/hr. This will only provide 960mL total, 48g protein, 845 kcal. -Day 2: If tolerance to Day 1 formula proven and electrolytes within reasonable limits, increase 5% AA/20% Dextrose formula to 70mL/hr. This will provide 1680mL total, 84g protein (1.5g/kg), 192g dextrose (2.3 g/kg/min), and 1478 kcal (26 kcal/kg). Will meet protein needs, but not calorie needs. -Day 3: When tolerance proven, maintain same AA/Dextrose rate but add 50g lipids. This will meet both protein and calorie needs. Objective: Labs MG++ 1.8, Phos. 5.6, Na+ 132, K+3.2, Cl 100, CO2 19, BUN 56, Scr 2.7 (on HD), glucose 95, Ca++6.1, albumin 2.7 (on 04/18), Corrected Ca++7 .1, WBC 13.0, Plt 119, AST 20 (04/18), ALT (6 (04/18), Alk Phos 104 (04/18) Assessment/Plan: 1. HD on hold today for low BP (per RN) 2.Will start with 5% Amino acid + 20% Dextrose today at 20 ml/hr x4 hrs then 30 ml/hr x4 hrs then 40 ml/hr (as per dietitian recommendation). Will add Na acetate 40 mEq/L, KCl 10 mEq/L, calcium Gluconate 0.5 gm/L, MVI 10 ml, Trace elements 1 ml 3.No lipids today 4.Already on accucheck with sliding scale coverage q6hr 5.Labs ordered 6.Pharmacy will review the labs, check HD schedule (if tomorrow), I/O (urine output) and ensure if patient tolerating TPN rate
--- NOTE | 2019-04-19 12:40 | NUR ---
Dr. rios at bedside to assess patient. Orders received and Lab called to draw blood.
[2019-04-19 13:00] LABS: BASOPHILS # (AUTO) 0.1 K/uL (0.0-8.0); BASOPHILS % (AUTO) 0.7 % (0.0-2.0); EOSINOPHILS % (AUTO) 0.1 % (0.0-7.0); HEMATOCRIT 35.2 % (31.2-41.9); HEMOGLOBIN 11.1 g/dL (10.9-14.3); LYMPHOCYTES # (AUTO) 4.1 K/uL (20.0-40.0); LYMPHOCYTES % (AUTO) 18.7 % (20.5-51.5); MEAN CORPUSCULAR HEMOGLOBIN 28.5 uug (24.7-32.8); MEAN CORPUSCULAR HGB CONC 32 g/dL (32.3-35.6); MEAN CORPUSCULAR VOLUME 90.5 fL (75.5-95.3); MONOCYTES # (AUTO) 1.2 K/uL (2.0-10.0); MONOCYTES % (AUTO) 5.7 % (0.0-11.0); NEUTROPHILS # (AUTO) 16.3 K/uL (1.8-8.9); NEUTROPHILS % (AUTO) 74.8 % (38.5-71.5); PLATELET COUNT (AUTO) 190 K/uL (179-408); RED BLOOD CELL COUNT(AUTO) 3.89 MIL/uL (3.63-4.92); WHITE BLOOD COUNT (AUTO) 21.7 K/uL (3.8-11.8)
[2019-04-19] MEDS ORDERED: SODIUM ACETATE IV PRN ×7 (13:00)
[2019-04-19] MEDS ORDERED: [UNRECOGNIZED DRUG - OTHER] IV PRN ×7 (13:00)
[2019-04-19] MEDS ORDERED: CALCIUM GLUCONATE IV PRN ×7 (13:00)
[2019-04-19] MEDS ORDERED: POTASSIUM CHLORIDE IV PRN ×7 (13:00)
--- NOTE | 2019-04-19 13:49 | NUR ---
This advertising copywriter was out of the room for a brief period while supervisor lump room was in the unit in preparation for lunch. Upon entering the unit patients daughter requested to come in the unit, it was explained that the home care assistant just left and that she had already been in the room for the specified time period allowed. The additional nurse on schedule came to explain further and remind her that the visiting hours are 15 minutes at a time and that she had already been in the room. The patients daughter then called after staff member to give her last name, and continued to push the door open against this advertising copywriter. The daughter was asked to step away from the door and the daughter was irately yelling that we are violating her right by not giving out our last names and not letting her see her mother.
[2019-04-19] MEDS: PHENYLEPHRINE IV 80 MG in IV DEXTROSE 5% 250 ML IV PRN (14:06)
--- NOTE | 2019-04-19 14:30 | NUR ---
Temperature rechecked, Oral temp is 97.7, JEM hugger maintained.
[2019-04-19] MEDS: NOREPINEPHRINE BITARTRATE 16 MG in IV DEXTROSE 5% 500 ML IV PRN ×2 (16:53→16:55)
[2019-04-19] MEDS: MICAFUNGIN SODIUM 100 MG in IV NORMAL SALINE 100 ML IV SCH (17:01)
[2019-04-19] MEDS: INSULIN REGULAR, HUMAN 300 UNIT/3 ML VIAL SQ PRN ×2 (18:25→23:50)
--- NOTE | 2019-04-19 19:02 | NUR ---
Patient continues to be on Melody vent ac 15 TV 500, o2 30%. Patient is sinus rhythm and pacing on and off. Patient continues to have scant urine, Air mattress is inflated, scd's on. Patient is on levophed 1mcg, neosynephrine 300mcg, tpn running @ 30ml/hr and NS @ 10cc/hr. Arterial line in place, femoral line in place, and right neck central line in place. Report being given at this time to oncoming shift.
[2019-04-19] MEDS: ALBUTEROL SULFATE 2.5 MG/3 ML NEBU NEB PRN (20:11)
--- NOTE | 2019-04-19 21:15 | NUR ---
PT ON CONT VAN VENT WITH TRACH SHILEY #[address] AND [address]URED, WITH SAME CURRENT VENT SETTINGS, A/C 15 VT 500ML, NO PEEP , 30% , PT DOES ASSIST AT TIMES, GOOD COUGH EFFORT, NEB INLINE TOLL WELL ; SUCTIONED LIGHT PALE YELL TINGE SECRETIONS, AND CLEAN MOUTH, TRACH CARE DONE, ALL ALARMS OK, NO VENT CHANGES MADE, AMBU BAG AT BEDSIDE.Anamika VELAZQUEZP Addendum: 04/19/[address] Amended: Links added.
[2019-04-19] MEDS: MELATONIN 3 MG TABLET GT SCH (21:31)
[2019-04-20] VITALS (94 sets, daily range): BP systolic 98–169; BP diastolic 33–76
[2019-04-20] MEDS: IPRATROPIUM BROMIDE 0.5 MG/2.5 ML NEBU NEB SCH ×6 (03:41→23:09)
[2019-04-20 05:14] LABS: BASOPHILS # (AUTO) 0.1 K/uL (0.0-8.0); BASOPHILS % (AUTO) 1.2 % (0.0-2.0); EOSINOPHILS % (AUTO) 0.1 % (0.0-7.0); HEMATOCRIT 27.8 % (31.2-41.9); LYMPHOCYTES # (AUTO) 2.6 K/uL (20.0-40.0); LYMPHOCYTES % (AUTO) 35.1 % (20.5-51.5); MEAN CORPUSCULAR HEMOGLOBIN 28.6 uug (24.7-32.8); MEAN CORPUSCULAR HGB CONC 33 g/dL (32.3-35.6); MEAN CORPUSCULAR VOLUME 87.9 fL (75.5-95.3); MONOCYTES # (AUTO) 0.4 K/uL (2.0-10.0); MONOCYTES % (AUTO) 5.5 % (0.0-11.0); NEUTROPHILS # (AUTO) 4.3 K/uL (1.8-8.9); NEUTROPHILS % (AUTO) 58.1 % (38.5-71.5); PLATELET COUNT (AUTO) 60 K/uL (179-408); RED BLOOD CELL COUNT(AUTO) 3.16 MIL/uL (3.63-4.92); WHITE BLOOD COUNT (AUTO) 7.4 K/uL (3.8-11.8)
[2019-04-20] MEDS: BLOOD SUGAR DIAGNOSTIC 1 EACH STRIP VI SCH ×3 (05:14→18:19)
[2019-04-20] MEDS: INSULIN REGULAR, HUMAN 300 UNIT/3 ML VIAL SQ PRN ×3 (05:21→18:31)
[2019-04-20 05:30] LABS: CARBON DIOXIDE 22 mmol/L (21-32); CHLORIDE 92 mmol/L (98-107); CHOLESTEROL 86 mg/dL (<200); CREATININE 3.7 mg/dL (0.6-1.3); GLUCOSE 252 mg/dL (74-106); HDL CHOLESTEROL 28 mg/dL (40-60); MAGNESIUM 2.1 mg/dL (1.8-2.4); POTASSIUM 3.9 mmol/L (3.5-5.1); TRIGLYCERIDES 97 MG/DL (30-150); UREA NITROGEN, BLOOD 71 mg/dL (7-18)
[2019-04-20] MEDS: HYDROCORTISONE SOD SUCCINATE 100 MG/2 ML VIAL IV SCH ×3 (05:53→21:52)
[2019-04-20] MEDS: LEVOTHYROXINE SODIUM 100 MCG TABLET GT SCH (06:03)
[2019-04-20] MEDS: MIDODRINE HCL 2.5 MG TABLET PO SCH ×3 (06:04→22:52)
[2019-04-20 06:12] LABS: BAND % (MANUAL) 5 % (0-10); LYMPHOCYTES % (MANUAL) 31 % (20-40); MONOCYTES % (MANUAL) 4 % (2-10); NEUTROPHILS % (MANUAL) 60 % (42-75)
[2019-04-20 06:46] LABS: ABG BASE EXCESS -7.1 mmol/L; ABG HCO3 16.7 mmol/L; ABG PCO2 28.4 mmHg (35.0-45.0); ABG PH 7.386 (7.350-7.450); ABG PO2 147.8 mmHg (75.0-100.0); ABG SITE A-Line; ABG TOTAL HEMOGLOBIN 11.6 G/dL (12.0-16.0); MetHb 0.3 % (0.0-1.5); VENT MODE VENT - A/C; VT, ABG 500 mL
--- NOTE | 2019-04-20 07:30 | NUR ---
RECIEVED PT LYING IN BED WITH HOB UP AT 20DEGREES. OPENS EYES TO CALLS. COLOR IS GOOD. PT ON LEVOPHED DRIP DOUBLE STRENGTH AT 4MCG/MIN VIA RIJ AND SBP IS HOLDING WELL. HR IS V-PACING 100%. NO APPARENT RESPIRATORY DISTRESS NOTED. TRACHEOSTOMY SHILEY 6 EXT IS CLEAN AND INTACT. CONNECTED TO VENTILATOR WITH SETTING OF AC 15, VT-500, FIO2-30%. LUNGS ARE CLEAR WITH SLIGHT RHONCHIS. AFEBRILE. GENERALIZED PITTING EDEMA +2-3
--- NOTE | 2019-04-20 07:30 | NUR ---
RECIEVED PT LYING IN BED, AWAKE, ALERT AND ORIENTEDX3. SPEECH IS CLEAR. HR-SR, SB, NO ECTOPY. DENIES ANY CHEST PAINS. PT C/O SEVERE NAUSEA , AND HAD A LITTLE EMISIS NOTED ON THE BASIN AND MOUTH. DENIES OF ANY ABDOMENAL PAIN. AFEBRILE.
--- NOTE | 2019-04-20 08:30 | NUR ---
NPO. GT CLAMPED FOR MEDS ONLY. PT ON TPN RUNNING AT 40ML/HR INFUSING WELL. ABDOMEN VERY DISTENDED AND VERY HARD TO TOUCH. BS IS ABSENT. PT IS ANURIC.
--- NOTE | 2019-04-20 08:30 | NUR ---
SEEN AND EXAMINED BY DR PEARSON WITH NEW ORDERS. PT MEDICATED WITH ZOFRAN 4MG SLOW IVP ON THE RT AC G18. PT ABLE TO FALL ASLEEP. KEPT NPO FOR NOR NOW TO REST THE STOMACH. IS AWARE.
[2019-04-20] MEDS: CARBIDOPA/LEVODOPA 25-100MG TABLET PO SCH ×4 (09:07→20:41)
[2019-04-20] MEDS: ENTACAPONE 200 MG TABLET GT SCH ×4 (09:07→20:40)
[2019-04-20] MEDS: PANTOPRAZOLE SODIUM 40 MG VIAL IV SCH ×2 (09:09→20:40)
[2019-04-20] MEDS: Z GUARD REMEDY PASTE 57 GM TUBE TOP SCH ×2 (09:09→20:41)
--- NOTE | 2019-04-20 09:30 | NUR ---
PT IS INCONTINENT OF URINE AND VERY SMALL LIQUIDE BROWN STOOLS. CLEANED UP AND PLACED ON DIAPERS.
--- NOTE | 2019-04-20 12:00 | NUR ---
MIDLINE INSERTION DONE AT THE BEDSIDE ON THE RIGHT CEPHALIC VEIN BY THE PICC LINE RN. Addendum: 04/20/19 at 1514 by ROSALVA CHACKO RN ABOVE NOTES IS INTENDED FOR CCU1. PLS DISREGARD.
[2019-04-20] MEDS ORDERED: POTASSIUM CHLORIDE IV PRN ×6 (13:00)
[2019-04-20] MEDS ORDERED: SODIUM CHLORIDE IV PRN ×6 (13:00)
[2019-04-20] MEDS ORDERED: [UNRECOGNIZED DRUG - OTHER] IV PRN ×6 (13:00)
[2019-04-20] MEDS: NOREPINEPHRINE BITARTRATE 16 MG in IV DEXTROSE 5% 500 ML IV PRN (14:29)
--- NOTE | 2019-04-20 14:46 | NUR ---
Clinical Pharmacy Note: TPN per Pharmacy Subjective: To continue TPN via central line on this Dialysis patient for GT leakage per MD note. Per Dietitian, has been off of TF for about a week & continues with diarrhea. Patient is also on IV pressors. Per MD (Dr. Stern) note on 04/19: Distended Abdomen, h/o cirrhosis, secondary to ascites Dietitian TPN recommendations (see dietitian Gennas note): Spoke with Dr. Vicki Segovia in person in CCU @1020 today about abnormal labs and fluid management. Clarified that we have premixed TPN formulas only, making it impossible to restrict fluid and phosphorus while meeting pt's estimated protein and calorie needs. Asked Dr. Segovia if there is particular fluid limit he would like the TPN to stay under and he said no. Discussed this pt at length with pharmacist as well. Together, we decided it would be best to add insulin to TPN today and control blood sugars before advancing dextrose content. -04/20: Continue 5% Amino acid/20% Dextrose @ 40mL/hr. Add 20 units insulin to bag. This will only provide 960mL total, 48g protein, 845 kcal. -04/21: If tolerance to previous formula proven and BGs and electrolytes within reasonable limits, increase 5% AA/20% Dextrose formula to 70mL/hr. Increase insulin appropriately. This will provide 1680mL total, 84g protein (1.5g/kg), 192g dextrose (2.3g/kg/min), and 1478 kcal (26 kcal/kg). Will meet protein needs, but not calorie needs. -04/22: When tolerance proven, maintain same AA/Dextrose rate but add 50g lipids. This will meet both protein and calorie needs. Monitor labs closely for signs of refeeding. Monitor blood sugars. Objective: Labs MG++ 2.1, Phos. 7.0, Na+ 128, K+3.9, Cl 92, CO2 22, BUN 71, Scr 3.7 (on HD), glucose 252, Ca++7.0, albumin 2.7 (on 04/18), Corrected Ca++8.0, WBC 7.4, Plt 60, AST 20 (04/18), ALT (6 (04/18), Alk Phos 104 (04/18) Assessment/Plan: 1. HD today per RN 2.Will continue with Bag #2: 5% Amino acid + 20% Dextrose, now at 40ml/hr (as per dietitian recommendation). Will however adjust insulin in TPN to 5 units. This is about 50% of TDD SSI pt is receiving. Will also add NaCl 100 mEq/L, KCl 10 mEq/L, calcium Gluconate 0.5 gm/L 3.No lipids today 4.Will continue accucheck with sliding scale coverage q6hr 5.Labs ordered 6.Pharmacy will review the labs, check HD schedule (if tomorrow), I/O (urine output) and ensure if patient tolerating TPN rate
--- NOTE | 2019-04-20 15:20 | NUR ---
HEMODIALYSIS STARTED IN THE ROOM ORDERED.
--- NOTE | 2019-04-20 17:00 | NUR ---
PT STILL ON DIALYSIS. ORAL MEDS VIA GT NOT GIVEN.
[2019-04-20] MEDS: IV NORMAL SALINE 250 ML IV PRN (18:18)
[2019-04-20] MEDS: CEFTAZIDIME 1 G in IV DEXTROSE 5% 50 ML IV SCH (18:56)
[2019-04-20] MEDS: MICAFUNGIN SODIUM 100 MG in IV NORMAL SALINE 100 ML IV SCH (19:00)
[2019-04-20] MEDS: ALBUTEROL SULFATE 2.5 MG/3 ML NEBU NEB PRN (19:22)
--- NOTE | 2019-04-20 19:24 | NUR ---
Pt received on Guerra ventilator with the following settings of AC-15, Vt-500, FIO2-30%, trached with Shiley#6 XLT Distal trach, which is in the place and secure. No s/s of respiratory distress noted. Airway care done, pt responded to physical stimuli. In-line HHN tx with 2.5mg Albuterol+0.5mg Atrovent given, no adverse reaction noted. HME changed. Resus. bag and back up trach at bedside. Vent and alarms checked and reset.
--- NOTE | 2019-04-20 19:30 | NUR ---
Report received. Patient with trache to mechanical ventilator settings: AC=15, FIO2=30%, VO=336 ml. Sat 58=466%. Eyes open, tracks, follows simple commands such as open mouth. With generalized pitting edema. Abdomen distended, soft; no bowel sounds. Assessment completed; see flow sheet for details. Addendum: 04/20/19 at 2136 by FRANK BURTON RN Amended: Links added. Addendum: 04/20/19 at 2142 by FRANK BURTON RN Amended: Links added.
--- NOTE | 2019-04-20 20:30 | NUR ---
Incontinent of soft brown stools; cleaned. Skin care provided. Turned and repositioned. Addendum: 04/20/19 at 2142 by FRANK BURTON RN Amended: Links added.
[2019-04-20] MEDS: MELATONIN 3 MG TABLET GT SCH (20:40)
[2019-04-21] VITALS (23 sets, daily range): BP systolic 129–173; BP diastolic 35–124
[2019-04-21] MEDS: BLOOD SUGAR DIAGNOSTIC 1 EACH STRIP VI SCH ×5 (00:08→23:52)
[2019-04-21] MEDS: INSULIN REGULAR, HUMAN 300 UNIT/3 ML VIAL SQ PRN ×5 (00:12→23:54)
[2019-04-21] MEDS: IPRATROPIUM BROMIDE 0.5 MG/2.5 ML NEBU NEB SCH ×6 (03:04→23:09)
[2019-04-21 05:06] LABS: BASOPHILS % (AUTO) 0.6 % (0.0-2.0); HEMATOCRIT 28.1 % (31.2-41.9); LYMPHOCYTES # (AUTO) 1.7 K/uL (20.0-40.0); LYMPHOCYTES % (AUTO) 26.8 % (20.5-51.5); MEAN CORPUSCULAR HEMOGLOBIN 28.5 uug (24.7-32.8); MEAN CORPUSCULAR HGB CONC 32 g/dL (32.3-35.6); MEAN CORPUSCULAR VOLUME 89.6 fL (75.5-95.3); MONOCYTES # (AUTO) 0.2 K/uL (2.0-10.0); NEUTROPHILS # (AUTO) 4.3 K/uL (1.8-8.9); NEUTROPHILS % (AUTO) 68.6 % (38.5-71.5); PLATELET COUNT (AUTO) 61 K/uL (179-408); RED BLOOD CELL COUNT(AUTO) 3.14 MIL/uL (3.63-4.92); WHITE BLOOD COUNT (AUTO) 6.2 K/uL (3.8-11.8)
[2019-04-21 05:13] LABS: CARBON DIOXIDE 23 mmol/L (21-32); CHLORIDE 96 mmol/L (98-107); CREATININE 3.2 mg/dL (0.6-1.3); GLUCOSE 258 mg/dL (74-106); PHOSPHOROUS 5.2 mg/dL (2.5-4.9); POTASSIUM 3.4 mmol/L (3.5-5.1); UREA NITROGEN, BLOOD 55 mg/dL (7-18)
[2019-04-21] MEDS: HYDROCORTISONE SOD SUCCINATE 100 MG/2 ML VIAL IV SCH ×3 (05:40→22:09)
[2019-04-21] MEDS: IV NORMAL SALINE 250 ML IV PRN (05:44)
[2019-04-21] MEDS: MIDODRINE HCL 2.5 MG TABLET PO SCH ×3 (06:00→22:00)
[2019-04-21] MEDS: LEVOTHYROXINE SODIUM 100 MCG TABLET GT SCH (06:04)
--- NOTE | 2019-04-21 06:33 | NUR ---
BPs trending higher. Midodrine via GT not given. Face and earlobes get dusky during care especially turning. Remains anuric. No neuro changes; arouses to name, tracks and follows simple commands. Addendum: 04/21/19 at 0636 by FRANK BURTON RN Amended: Links added.
[2019-04-21] MEDS: ENTACAPONE 200 MG TABLET GT SCH ×4 (08:39→20:53)
[2019-04-21] MEDS: CARBIDOPA/LEVODOPA 25-100MG TABLET PO SCH ×4 (08:39→20:53)
[2019-04-21] MEDS: PANTOPRAZOLE SODIUM 40 MG VIAL IV SCH ×2 (08:39→20:51)
[2019-04-21] MEDS: Z GUARD REMEDY PASTE 57 GM TUBE TOP SCH ×2 (08:40→20:53)
--- NOTE | 2019-04-21 11:23 | NUR ---
Clinical Pharmacy Note: TPN per Pharmacy Subjective: To continue TPN via central line on this Dialysis patient for GT leakage per MD note. Per Dietitian, has been off of TF for about a week & continues with diarrhea. Patient is also on IV pressors. Per MD (Dr. Stern) note on 04/19: Distended Abdomen, h/o cirrhosis, secondary to ascites Dietitian TPN recommendations (see dietitian Joby note on 04/20): Spoke with Dr. Vicki Segovia in person in CCU @1020 today about abnormal labs and fluid management. Clarified that we have premixed TPN formulas only, making it impossible to restrict fluid and phosphorus while meeting pt's estimated protein and calorie needs. Asked Dr. Segovia if there is particular fluid limit he would like the TPN to stay under and he said no. Discussed this pt at length with pharmacist as well. Together, we decided it would be best to add insulin to TPN today and control blood sugars before advancing dextrose content. -04/20: Continue 5% Amino acid/20% Dextrose @ 40mL/hr. Add 20 units insulin to bag. This will only provide 960mL total, 48g protein, 845 kcal. -04/22: Since insulin 20 units was not added to 2nd bag of TPN & BG is over 200, we will continue same rate of TPN 40 ml/hr for today. Will add 20 units of insulin to the bag # 3. Re-evaluate in am to increase rate if ok. -04/23: When tolerance proven, maintain same AA/Dextrose rate but add 50g lipids. This will meet both protein and calorie needs. Monitor labs closely for signs of refeeding. Monitor blood sugars. Objective: Labs MG++ 2.0, Phos. 5.2, Na+ 131, K+3.4, Cl 96, CO2 23, BUN 55, Scr 3.2 (on HD), glucose 252, Ca++8.0, albumin 2.7 (on 04/18), Corrected Ca++904, WBC 7.4, Plt 60, AST 20 (04/18), ALT (6 (04/18), Alk Phos 104 (04/18) Assessment/Plan: 1. HD today per RN 2.Will continue with Bag #3: 5% Amino acid + 20% Dextrose, now at 40ml/hr (as per dietitian recommendation). Will however adjust insulin in TPN to 20 units (per Natalya Brooksitian recommendation, new guidelines, recommends adding 15 units per 100 gm of dextrose & 10 units will stick to bag. Will also keep NaCl 100 mEq/L, KCl 10 mEq/L, calcium Gluconate 0.5 gm/L & add MVI 10 ml, Trace elements 1 ml. 3.No lipids today 4.Will continue accucheck with sliding scale coverage q6hr 5.Labs ordered 6.Pharmacy will review the labs, check HD schedule (if tomorrow), I/O (urine output) and ensure if patient tolerating TPN rate
--- NOTE | 2019-04-21 12:50 | NUR ---
DOCTOR PAZ IN THE UNIT SPOKE TO DAUGHTER. HD PLANNED FOR TODAY AND POSSIBLY RESUME FEEDING PER DAUGHTERS REQUEST, WILL CONSULT GI IF THAT IS POSSIBLE. FEEDING TO INITIATE SLOWLY AT 10ML/HR TOLERATED IF CLEARED BY GI. CVP CAN BE DISCONTINUED.
[2019-04-21] MEDS ORDERED: SODIUM CHLORIDE IV PRN ×24 (13:00)
[2019-04-21] MEDS ORDERED: [UNRECOGNIZED DRUG - OTHER] IV PRN ×24 (13:00)
[2019-04-21] MEDS ORDERED: POTASSIUM CHLORIDE IV PRN ×24 (13:00)
[2019-04-21 13:36] LABS: ABG BASE EXCESS -1.3 mmol/L; ABG HCO3 23.1 mmol/L; ABG PCO2 37.3 mmHg (35.0-45.0); ABG PH 7.409 (7.350-7.450); ABG PO2 178.6 mmHg (75.0-100.0); ABG SITE A-Line; ABG TOTAL HEMOGLOBIN 9.8 G/dL (12.0-16.0); COHb 1.2 % (0.5-1.5); MetHb 0.3 % (0.0-1.5); O2Hb 97.9 % (94.0-97.0); VENT MODE VENT - A/C; VT, ABG 500 mL
--- NOTE | 2019-04-21 13:50 | NUR ---
PAGED DR. PAZ FOR CLARIFICATION OF GI CONSULT TO BE MADE OR WANTS TO INITIATE TRIAL ON TUBE FEEDS.
--- NOTE | 2019-04-21 14:00 | NUR ---
DOCTOR CAMILO IN THE UNIT ROUNDING ON PATIENT, UPDATES GIVEN.
--- NOTE | 2019-04-21 14:06 | NUR ---
MIDODRINE GIVEN PENDING DIALYSIS TODAY. YESTERDAY PATIENT WAS STILL ON LEVOPHED DURING DIALYSIS WAS NOTED ON HD SHEET.
--- NOTE | 2019-04-21 14:24 | NUR ---
SECOND CALL MADE OUT TO DOCTOR PAZ
--- NOTE | 2019-04-21 14:30 | NUR ---
ORALIA TAX ACCOUNTING MANAGER IN THE UNIT TO SEE PATIENT. UPDATED TAX ACCOUNTING MANAGER.
--- NOTE | 2019-04-21 15:46 | NUR ---
CALLED DR BLAKE JONES FOR GI FOLLOW UP.
--- NOTE | 2019-04-21 16:09 | NUR ---
DIALYSIS NURSE IS IN UNIT TO DIALIZE PATIENT.
[2019-04-21] MEDS: MICAFUNGIN SODIUM 100 MG in IV NORMAL SALINE 100 ML IV SCH (17:10)
--- NOTE | 2019-04-21 19:02 | NUR ---
RECEIVED PT ON VAN VENT. PT HAS A SHILEY #6 XLT-DISTAL CUFFED TRACH. PT IS ON THE FOLLOWING SETTINGS THAT ARE CHARTED ON THE MECHANICAL VENT NOTES. NO VENT CHANGES MADE AT THIS TIME. VENT ALARMS CHECKED AND THEY ARE ON AND AUDIBLE. HHN TX GIVEN PER MD ORDERS AND TOLERATED WELL WITH NO ADVERSE REACTIONS. SUCTIONED SMALL AMOUNT OF THICK, PALE SECRETIONS. HME CHANGED. AMBU BAG AND BACK UP TRACH ARE AT BEDSIDE. VENT PLUGGED INTO RED EMERGENCY OUTLET. WILL CONTINUE TO MONITOR.
--- NOTE | 2019-04-21 20:20 | NUR ---
Dialysis completed; 3000 ml out. VS stable. Patient appears comfortable on same vent settings. Awake, grimacing to stimulation and able to follow simple commands.
[2019-04-21] MEDS: MELATONIN 3 MG TABLET GT SCH (20:52)
[2019-04-21] MEDS: CEFTAZIDIME 1 G in IV DEXTROSE 5% 50 ML IV PRN (21:00)
[2019-04-22] VITALS (24 sets, daily range): BP systolic 139–162; BP diastolic 35–45
[2019-04-22] MEDS: IV NORMAL SALINE 250 ML IV PRN (01:28)
[2019-04-22] MEDS: IPRATROPIUM BROMIDE 0.5 MG/2.5 ML NEBU NEB SCH ×6 (02:34→23:45)
[2019-04-22 05:21] LABS: BASOPHILS % (AUTO) 0.3 % (0.0-2.0); HEMATOCRIT 29.4 % (31.2-41.9); HEMOGLOBIN 9.3 g/dL (10.9-14.3); LYMPHOCYTES # (AUTO) 1.7 K/uL (20.0-40.0); LYMPHOCYTES % (AUTO) 22.8 % (20.5-51.5); MEAN CORPUSCULAR HEMOGLOBIN 28.5 uug (24.7-32.8); MEAN CORPUSCULAR HGB CONC 32 g/dL (32.3-35.6); MONOCYTES # (AUTO) 0.3 K/uL (2.0-10.0); MONOCYTES % (AUTO) 3.6 % (0.0-11.0); NEUTROPHILS # (AUTO) 5.3 K/uL (1.8-8.9); NEUTROPHILS % (AUTO) 73.3 % (38.5-71.5); RED BLOOD CELL COUNT(AUTO) 3.27 MIL/uL (3.63-4.92); WHITE BLOOD COUNT (AUTO) 7.2 K/uL (3.8-11.8)
[2019-04-22] MEDS: HYDROCORTISONE SOD SUCCINATE 100 MG/2 ML VIAL IV SCH ×3 (05:30→22:28)
[2019-04-22] MEDS: BLOOD SUGAR DIAGNOSTIC 1 EACH STRIP VI SCH ×4 (05:31→23:52)
[2019-04-22 05:36] LABS: CARBON DIOXIDE 25 mmol/L (21-32); CHLORIDE 104 mmol/L (98-107); CREATININE 2.7 mg/dL (0.6-1.3); GLUCOSE 218 mg/dL (74-106); MAGNESIUM 1.7 mg/dL (1.8-2.4); POTASSIUM 3.5 mmol/L (3.5-5.1); UREA NITROGEN, BLOOD 46 mg/dL (7-18)
[2019-04-22] MEDS: INSULIN REGULAR, HUMAN 300 UNIT/3 ML VIAL SQ PRN ×4 (05:37→23:53)
[2019-04-22 05:46] LABS: PLATELET COUNT (AUTO) 62 K/uL (179-408)
[2019-04-22] MEDS: MIDODRINE HCL 2.5 MG TABLET PO SCH (06:00)
[2019-04-22 06:06] LABS: LYMPHOCYTES % (MANUAL) 23 % (20-40); MONOCYTES % (MANUAL) 4 % (2-10); NEUTROPHILS % (MANUAL) 73 % (42-75)
[2019-04-22] MEDS: LEVOTHYROXINE SODIUM 100 MCG TABLET GT SCH (06:06)
--- NOTE | 2019-04-22 06:30 | NUR ---
Natanael Suero CIRCULAR KNIFE CUTTER MACHINE visited; no new orders. Addendum: 04/22/19 at 0721 by FRANK BURTON RN Amended: Links added.
--- NOTE | 2019-04-22 07:17 | NUR ---
No neuro changes. Stable on current vent settings.
[2019-04-22] MEDS: CARBIDOPA/LEVODOPA 25-100MG TABLET PO SCH ×4 (08:56→20:49)
[2019-04-22] MEDS: PANTOPRAZOLE SODIUM 40 MG VIAL IV SCH ×2 (08:56→20:49)
[2019-04-22] MEDS: ENTACAPONE 200 MG TABLET GT SCH ×4 (08:56→20:49)
[2019-04-22] MEDS: Z GUARD REMEDY PASTE 57 GM TUBE TOP SCH ×2 (08:57→20:50)
--- NOTE | 2019-04-22 11:10 | NUR ---
GAURI YOUSSEF OF SURGERY ROUNDING ON PATIENT.
--- NOTE | 2019-04-22 11:18 | NUR ---
DOCTOR NOLVIA ROUNDING ON PATIENT. REFER TO NEW ORDERS IN THE SYSTEM
[2019-04-22] MEDS ORDERED: SODIUM CHLORIDE IV PRN ×6 (13:00)
[2019-04-22] MEDS ORDERED: [UNRECOGNIZED DRUG - OTHER] IV PRN ×6 (13:00)
[2019-04-22] MEDS ORDERED: POTASSIUM CHLORIDE IV PRN ×6 (13:00)
--- NOTE | 2019-04-22 15:43 | NUR ---
Clinical Pharmacy Note: TPN per Pharmacy Subjective: To continue TPN via central line on this Dialysis patient for GT leakage per MD note. Per Dietitian, has been off of TF for about a week & continues with diarrhea. Patient is also on IV pressors. Per MD (Dr. Stern) note on 04/19: Distended Abdomen, h/o cirrhosis, secondary to ascites Dietitian TPN recommendations (see dietitian Joby note on 04/20): Spoke with Dr. Vicki Segovia in person in CCU @1020 today about abnormal labs and fluid management. Clarified that we have premixed TPN formulas only, making it impossible to restrict fluid and phosphorus while meeting pt's estimated protein and calorie needs. Asked Dr. Segovia if there is particular fluid limit he would like the TPN to stay under and he said no. Discussed this pt at length with pharmacist as well. Together, we decided it would be best to add insulin to TPN today and control blood sugars before advancing dextrose content. -04/20: Continue 5% Amino acid/20% Dextrose @ 40mL/hr. Add 20 units insulin to bag. This will only provide 960mL total, 48g protein, 845 kcal. -04/22: Since insulin 20 units was not added to 2nd bag of TPN & BG is over 200, we will continue same rate of TPN 40 ml/hr for today. Will add 20 units of insulin to the bag # 3. Re-evaluate in am to increase rate if ok. -04/23: When tolerance proven, maintain same AA/Dextrose rate but add 50g lipids. This will meet both protein and calorie needs. Monitor labs closely for signs of refeeding. Monitor blood sugars. Objective: Labs MG++ 1.7, Phos. 4.0, Na+ 139, K+3.5, Cl 104, CO2 25, BUN 46, Scr 2.7 (on HD), glucose 218, Ca++7.9, albumin 2.7 (on 04/18), Corrected Ca++8.9, WBC 7.2, Plt 62, AST 20 (04/18), ALT (6 (04/18), Alk Phos 104 (04/18) Assessment/Plan: 1. No HD today per RN 2.Will continue with Bag #4: 5% Amino acid + 20% Dextrose, per discussion with buggy loader Nadeen, will increase to 50ml/hr. Will also adjust insulin in TPN to 28 units (Per additional ~50% TDD SSI pt received in last 24hrs and estimate based on 15units/100gm dextrose pt receiving). Will also add NaCl 60 mEq/L, KCl 10 mEq/L, calcium Gluconate 0.5 gm/L. 3.No lipids today (low plt + titrating up TPN rate) 4.Will continue accucheck with sliding scale coverage q6hr 5.Labs ordered 6.Pharmacy will review the labs, check HD schedule (if tomorrow), I/O (urine output) and ensure if patient tolerating TPN rate
--- NOTE | 2019-04-22 16:00 | NUR ---
per dr. hicks can resume tube feeds and taper down TPN. other orders placed in the system refer to orders.
--- NOTE | 2019-04-22 17:15 | NUR ---
spoke to pharmacy garrett metcalf TPN is not at goal rate. tube feeds may be initiated and no weaning on TPN yet. Pharmacy will follow up for tube feed tolerance and will initiate weaning of TPN tomorrow.
[2019-04-22] MEDS: CEFTAZIDIME 1 G in IV DEXTROSE 5% 50 ML IV SCH (17:26)
[2019-04-22] MEDS ORDERED: NEPRO 1000 ML GT PRN (17:30)
[2019-04-22] MEDS: MICAFUNGIN SODIUM 100 MG in IV NORMAL SALINE 100 ML IV SCH (18:05)
[2019-04-22] MEDS: ALBUTEROL SULFATE 2.5 MG/3 ML NEBU NEB PRN (19:15)
--- NOTE | 2019-04-22 19:25 | NUR ---
Report received. Patient with trache to mechanical ventilator settings: AC=15, FIO2=30%, IJ=475 ml. Sat 99-100%. Alert, calm, Eyes open, tracks, follows simple commands such as open mouth. Noted with generalized pitting edema. Abdomen distended, soft; no bowel sounds. GT feeding started @1700 Nepro @10ml/hr with order to increase as tolerated. TPN to be decreased by 10ml/hr with each feeding rate increase. Solu-Cortef order decreased to 50mg.
[2019-04-22] MEDS: MELATONIN 3 MG TABLET GT SCH (20:49)
--- NOTE | 2019-04-22 21:13 | NUR ---
Residual check with 2100 meds @5ml. Increase tube feed to 20ml/hr. Pharmacy called to disregard TPN titration and maintain @50ml/hr. PT seen by Dr. Schmidt for consult to discontinue TPN. Informed of pharmacy recommendation for TPM and he agreed to keep TPN at current rate and refer to dietitian for tube feeding goals; ordered paracentesis.
--- NOTE | 2019-04-22 21:51 | NUR ---
Spoke with daughter Jocelyn to obtain consent for the paracentesis and she wants to confer with Dr. Townsend for the necessity of the paracentesis. She said she will be here in the AM.
[2019-04-23] VITALS (28 sets, daily range): BP systolic 101–168; BP diastolic 31–73
[2019-04-23] MEDS: IPRATROPIUM BROMIDE 0.5 MG/2.5 ML NEBU NEB SCH ×6 (04:18→23:39)
--- NOTE | 2019-04-23 04:22 | NUR ---
PT ON CONT VAN VENT WITH TRACH IN PLACE AND SECURED, WITH SAME CURRENT VENT SETTINGS, SUCTIONED LIGHT PALE YELL TINGE SECRETIONS, GOOD COUGH EFFORT, SUCTION MOUTH WITH YANKAUER, PT BITES DOWN AT TIMES, ORAL CARE, TRACH CARE DONE, ALL VENT ALARMS GOOD, NO VENT CHANGES MADE AT THIS TIME, NEB INLINE WITH ATROVENT TOLL WELL, AMBU BAG AT BEDSIDE, PT STABLE AT THIS TIME, .Anamika VELAZQUEZP Addendum: 04/23/[address] Amended: Links added.
[2019-04-23] MEDS: IV NORMAL SALINE 250 ML IV PRN (05:03)
[2019-04-23] MEDS: HYDROCORTISONE SOD SUCCINATE 100 MG/2 ML VIAL IV SCH ×3 (05:16→21:42)
[2019-04-23] MEDS: INSULIN REGULAR, HUMAN 300 UNIT/3 ML VIAL SQ PRN ×4 (05:29→23:57)
[2019-04-23 05:31] LABS: BASOPHILS % (AUTO) 0.3 % (0.0-2.0); EOSINOPHILS % (AUTO) 0.1 % (0.0-7.0); HEMATOCRIT 29.9 % (31.2-41.9); HEMOGLOBIN 9.6 g/dL (10.9-14.3); LYMPHOCYTES # (AUTO) 1.6 K/uL (20.0-40.0); LYMPHOCYTES % (AUTO) 17.2 % (20.5-51.5); MEAN CORPUSCULAR HEMOGLOBIN 29.5 uug (24.7-32.8); MEAN CORPUSCULAR HGB CONC 32 g/dL (32.3-35.6); MEAN CORPUSCULAR VOLUME 91.4 fL (75.5-95.3); MONOCYTES # (AUTO) 0.4 K/uL (2.0-10.0); MONOCYTES % (AUTO) 4.9 % (0.0-11.0); NEUTROPHILS % (AUTO) 77.5 % (38.5-71.5); PLATELET COUNT (AUTO) 64 K/uL (179-408); RED BLOOD CELL COUNT(AUTO) 3.27 MIL/uL (3.63-4.92); WHITE BLOOD COUNT (AUTO) 9.1 K/uL (3.8-11.8)
[2019-04-23 05:40] LABS: ALANINE AMINOTRANSFERASE < 6 U/L (14-59); ALKALINE PHOSPHATASE 102 U/L (50-136); ASPARTATE AMINOTRANSFERASE 27 U/L (15-37); CARBON DIOXIDE 24 mmol/L (21-32); CHLORIDE 103 mmol/L (98-107); GLUCOSE 220 mg/dL (74-106); MAGNESIUM 1.7 mg/dL (1.8-2.4); PHOSPHOROUS 4.2 mg/dL (2.5-4.9); POTASSIUM 3.4 mmol/L (3.5-5.1); TOTAL PROTEIN, SERUM 5.6 g/dL (6.4-8.2); UREA NITROGEN, BLOOD 57 mg/dL (7-18)
[2019-04-23] MEDS: BLOOD SUGAR DIAGNOSTIC 1 EACH STRIP VI SCH ×4 (06:07→23:56)
[2019-04-23] MEDS: LEVOTHYROXINE SODIUM 100 MCG TABLET GT SCH (06:27)
[2019-04-23 06:33] LABS: BAND % (MANUAL) 5 % (0-10); LYMPHOCYTES % (MANUAL) 13 % (20-40); MONOCYTES % (MANUAL) 8 % (2-10); NEUTROPHILS % (MANUAL) 74 % (42-75)
--- NOTE | 2019-04-23 06:41 | NUR ---
Patient seen by Dr. Townsend, and he stated he spoke to the daughter Jocelyn last night in regard to the consent for paracentesis and that she was considering it. I called the daughter to obtain consent for the procedure and she still did not offer consent and wished to again speak with Dr. Townsend before she consents. Dr. Townsend was informed to contact the daughter ATUL so we can obtain the consent.
[2019-04-23] MEDS ORDERED: ALBUMIN HUMAN 25% 100 ML IV ONE (07:00)
--- NOTE | 2019-04-23 07:03 | NUR ---
Received consent from the daughter Jocelyn Valle for the paracentesis. Radiology made aware of the order for parcentesis, the consent received, as well as that the patient's feeding was held @0600. Radiology stated they will call us back around 0830 with a procedure time.
--- NOTE | 2019-04-23 07:30 | NUR ---
SBAR report received, no s/s of distress or pain noted.
[2019-04-23] MEDS: ENTACAPONE 200 MG TABLET GT SCH ×4 (08:03→20:54)
[2019-04-23] MEDS: PANTOPRAZOLE SODIUM 40 MG VIAL IV SCH ×2 (08:03→20:55)
[2019-04-23] MEDS: CARBIDOPA/LEVODOPA 25-100MG TABLET PO SCH ×4 (08:03→20:54)
[2019-04-23] MEDS: Z GUARD REMEDY PASTE 57 GM TUBE TOP SCH ×2 (08:04→20:55)
[2019-04-23] MEDS ORDERED: SODIUM CHLORIDE IV PRN ×9 (09:00)
[2019-04-23] MEDS ORDERED: [UNRECOGNIZED DRUG - OTHER] IV PRN ×9 (09:00)
[2019-04-23] MEDS ORDERED: POTASSIUM CHLORIDE IV PRN ×9 (09:00)
--- NOTE | 2019-04-23 09:22 | NUR ---
CAREGIVER AT BEDSIDE,UPDATED WITH PT.CONDITION AND PLAN OF CARE.
--- NOTE | 2019-04-23 09:30 | NUR ---
PT.WAS SEEN BY FLORA JACQUES MD.
--- NOTE | 2019-04-23 13:15 | NUR ---
Pt. daughter at bedside,updated with pt condition and plan of care.
--- NOTE | 2019-04-23 15:30 | NUR ---
rad.team at bedside for Paracentesis ,time out done. Pt.tolerated well,no s/s of distress, VS - stable. Pt.daughter at bedside.
--- NOTE | 2019-04-23 15:58 | NUR ---
Clinical Pharmacy Note: TPN per Pharmacy Subjective: To continue TPN via central line on this Dialysis patient for GT leakage per MD note. Per Dietitian, has been off of TF for about a week & continues with diarrhea. Patient is also on IV pressors. Per MD (Dr. Stern) note on 04/19: Distended Abdomen, h/o cirrhosis, secondary to ascites Dietitian TPN recommendations (see dietitian Joby note on 04/20): Spoke with Dr. Vicki Segovia in person in CCU @1020 today about abnormal labs and fluid management. Clarified that we have premixed TPN formulas only, making it impossible to restrict fluid and phosphorus while meeting pt's estimated protein and calorie needs. Asked Dr. Segovia if there is particular fluid limit he would like the TPN to stay under and he said no. Discussed this pt at length with pharmacist as well. Together, we decided it would be best to add insulin to TPN today and control blood sugars before advancing dextrose content. -04/20: Continue 5% Amino acid/20% Dextrose @ 40mL/hr. Add 20 units insulin to bag. This will only provide 960mL total, 48g protein, 845 kcal. -04/22: Since insulin 20 units was not added to 2nd bag of TPN & BG is over 200, we will continue same rate of TPN 40 ml/hr for today. Will add 20 units of insulin to the bag # 3. Re-evaluate in am to increase rate if ok. -04/23: When tolerance proven, maintain same AA/Dextrose rate but add 50g lipids. This will meet both protein and calorie needs. Monitor labs closely for signs of refeeding. Monitor blood sugars. Objective: Labs MG++ 1.7, Phos. 4.2, Na+ 137, K+3.4, Cl 103, CO2 24, BUN 57, Scr 3.0 (on HD), glucose 220, Ca++8.1, albumin 2.2 Corrected Ca++9.54, WBC 9.1, Plt 64, AST 27, ALT 6, Alk Phos 102 Assessment/Plan: 1. Plan on HD today per RN 2.Will continue with Bag #5 and #6: 5% Amino acid + 20% Dextrose, per discussion with finisher card tender Nadeen, will increase to 60ml/hr(RD recommended to continue 60ml/hr x24hrs due to fluid overload). Will also adjust insulin in TPN to 30 units . Will also add NaCl 60 mEq/L, KCl 20 mEq/L, calcium Gluconate 0.5 gm/L, Magnesium sulfate 1 gram/L. Will add MVI/Trace elements 1 vial to Bag#5. 3.No lipids today (low plt + titrating up TPN rate) 4.Will continue accucheck with sliding scale coverage q6hr 5.Labs ordered 6.Pharmacy will review the labs, check HD schedule daily, I/O (urine output) and ensure if patient tolerating TPN rate
--- NOTE | 2019-04-23 16:35 | NUR ---
Pt on mechanical ventilation, doing well with no sob noted. No vent changes made. Inline txs tolerated well. Will continue vent management, monitor for distress.
[2019-04-23] MEDS: MICAFUNGIN SODIUM 100 MG in IV NORMAL SALINE 100 ML IV SCH (17:29)
--- NOTE | 2019-04-23 18:30 | NUR ---
NO CHANGES IN PT.CONDITION, NO S/S OF DISTRESS OR PAIN NOTED.
--- NOTE | 2019-04-23 20:38 | NUR ---
PT.WAS SEEN BY CRISTOPHER GUAJARDO
[2019-04-23] MEDS: MELATONIN 3 MG TABLET GT SCH (20:55)
--- NOTE | 2019-04-23 22:00 | NUR ---
Report received. Patient with trache to vent on same settings; sat 97-100% on FIO2=30%. S/P paracentesis today. VS stable. With continuous TPN via RIJ TLC at 60 ml/H. Judy PINTO here to to dialyzed patient. Addendum: 04/24/19 at 0422 by FRANK BURTON RN Amended: Links added. Addendum: 04/24/19 at 0423 by FRANK BURTON RN Amended: Links added. Addendum: 04/24/19 at 0430 by FRANK BURTON RN Amended: Links added.
[2019-04-24] VITALS (12 sets, daily range): BP systolic 108–149; BP diastolic 33–73
--- NOTE | 2019-04-24 | NUR ---
VS stable during dialysis. Addendum: 04/24/19 at 0423 by FRANK BURTON RN Amended: Links added. Addendum: 04/24/19 at 0430 by FRANK BURTON RN Amended: Links added.
[2019-04-24] MEDS ORDERED: SODIUM CHLORIDE IV PRN ×7 (01:00)
[2019-04-24] MEDS ORDERED: [UNRECOGNIZED DRUG - OTHER] IV PRN ×7 (01:00)
[2019-04-24] MEDS ORDERED: POTASSIUM CHLORIDE IV PRN ×7 (01:00)
--- NOTE | 2019-04-24 01:30 | NUR ---
Dialysis completed; 2000 ml out. Am care done. Patient turned and repositioned. Abdomen still distended, soft. GT feedings at 20 ml/H. Also still with generalized pitting edema. Addendum: 04/24/19 at 0430 by FRANK BURTON RN Amended: Links added.
[2019-04-24] MEDS: IPRATROPIUM BROMIDE 0.5 MG/2.5 ML NEBU NEB SCH ×6 (02:32→23:01)
[2019-04-24] MEDS: CEFTAZIDIME 1 G in IV DEXTROSE 5% 50 ML IV PRN (02:47)
[2019-04-24] MEDS: IV NORMAL SALINE 250 ML IV PRN (02:50)
[2019-04-24 05:13] LABS: BASOPHILS % (AUTO) 0.3 % (0.0-2.0); EOSINOPHILS % (AUTO) 0.2 % (0.0-7.0); HEMOGLOBIN 8.9 g/dL (10.9-14.3); LYMPHOCYTES # (AUTO) 1.2 K/uL (20.0-40.0); LYMPHOCYTES % (AUTO) 18.6 % (20.5-51.5); MEAN CORPUSCULAR HEMOGLOBIN 29.5 uug (24.7-32.8); MEAN CORPUSCULAR HGB CONC 32 g/dL (32.3-35.6); MEAN CORPUSCULAR VOLUME 92.4 fL (75.5-95.3); MONOCYTES # (AUTO) 0.4 K/uL (2.0-10.0); MONOCYTES % (AUTO) 6.5 % (0.0-11.0); NEUTROPHILS # (AUTO) 4.9 K/uL (1.8-8.9); NEUTROPHILS % (AUTO) 74.4 % (38.5-71.5); PLATELET COUNT (AUTO) 53 K/uL (179-408); RED BLOOD CELL COUNT(AUTO) 3.03 MIL/uL (3.63-4.92); WHITE BLOOD COUNT (AUTO) 6.6 K/uL (3.8-11.8)
[2019-04-24 05:26] LABS: ALANINE AMINOTRANSFERASE < 6 U/L (14-59); ALKALINE PHOSPHATASE 111 U/L (50-136); ASPARTATE AMINOTRANSFERASE 20 U/L (15-37); CARBON DIOXIDE 24 mmol/L (21-32); CHLORIDE 106 mmol/L (98-107); CREATININE 2.5 mg/dL (0.6-1.3); GLUCOSE 194 mg/dL (74-106); MAGNESIUM 1.8 mg/dL (1.8-2.4); PHOSPHOROUS 3.1 mg/dL (2.5-4.9); POTASSIUM 3.5 mmol/L (3.5-5.1); TOTAL PROTEIN, SERUM 5.3 g/dL (6.4-8.2); UREA NITROGEN, BLOOD 48 mg/dL (7-18)
[2019-04-24] MEDS: HYDROCORTISONE SOD SUCCINATE 100 MG/2 ML VIAL IV SCH ×3 (05:36→21:02)
[2019-04-24] MEDS: BLOOD SUGAR DIAGNOSTIC 1 EACH STRIP VI SCH ×3 (05:41→17:42)
[2019-04-24] MEDS: INSULIN REGULAR, HUMAN 300 UNIT/3 ML VIAL SQ PRN ×3 (05:43→17:43)
[2019-04-24] MEDS: LEVOTHYROXINE SODIUM 100 MCG TABLET GT SCH (06:01)
--- NOTE | 2019-04-24 06:29 | NUR ---
Remains on TPN at 60 ml/H. GT feedings increased to 40 ml/H. No residuals. Had 1 BM all night. BPs stable. In and out of controlled Afib and V paced rhythm. Condition unchanged.
[2019-04-24] MEDS: PANTOPRAZOLE SODIUM 40 MG VIAL IV SCH ×2 (08:06→20:51)
[2019-04-24] MEDS: Z GUARD REMEDY PASTE 57 GM TUBE TOP SCH ×2 (08:06→20:43)
[2019-04-24] MEDS: CARBIDOPA/LEVODOPA 25-100MG TABLET PO SCH ×4 (08:09→20:50)
[2019-04-24] MEDS: ENTACAPONE 200 MG TABLET GT SCH ×4 (08:09→20:49)
--- NOTE | 2019-04-24 10:15 | NUR ---
Dr. Ortega here to see pt. Full report given. spoke with daughter at the bedside. New orders received. No dialysis treatment scheduled for today.
--- NOTE | 2019-04-24 11:59 | NUR ---
Dr. Murray here to see pt. Full report given. New orders received. Beta-d glucan test resulted and shown to Dr. Murray.
[2019-04-24] MEDS ORDERED: WEAN OF TPN 1 EA EACH IV PRN (13:30)
[2019-04-24] MEDS: CEFTAZIDIME 1 G in IV DEXTROSE 5% 50 ML IV SCH (16:43)
--- NOTE | 2019-04-24 16:43 | NUR ---
Gastric residual 200ml noted. Feeding turned off for now. Pharmacy aware of pt not tolerating tube feeding at goal rate. Will endorse to trestleman RN to reassess and restart feeding at a slower rate.
--- NOTE | 2019-04-24 17:18 | NUR ---
Tube feeding restarted; Nepro @ 40ml/hour x 20 hours. No residuals, tolerating feeding. pharmacy to start tapering down TPN and discontinue. Recommend goal rate of 50ml/hour which would provide 1000ml total volume, 1800 kcals,81 gms protein, and 727 ml free water. This meets 100% of patient need for kcals and protein. Addendum: 04/24/19 at [address] Amended: Links added.
[2019-04-24] MEDS: MELATONIN 3 MG TABLET GT SCH (20:51)
--- NOTE | 2019-04-24 21:17 | NUR ---
G-tube residual > 250 Dr Twonsend notified; con't hold TF.
[2019-04-25] VITALS (9 sets, daily range): BP systolic 93–120; BP diastolic 32–74
[2019-04-25] MEDS: BLOOD SUGAR DIAGNOSTIC 1 EACH STRIP VI SCH ×5 (01:00→23:46)
[2019-04-25] MEDS: INSULIN REGULAR, HUMAN 300 UNIT/3 ML VIAL SQ PRN ×5 (01:03→23:49)
[2019-04-25] MEDS: IPRATROPIUM BROMIDE 0.5 MG/2.5 ML NEBU NEB SCH ×6 (03:13→23:30)
[2019-04-25 05:16] LABS: BASOPHILS % (AUTO) 0.3 % (0.0-2.0); EOSINOPHILS % (AUTO) 0.1 % (0.0-7.0); HEMATOCRIT 29.7 % (31.2-41.9); HEMOGLOBIN 9.7 g/dL (10.9-14.3); LYMPHOCYTES # (AUTO) 1.1 K/uL (20.0-40.0); LYMPHOCYTES % (AUTO) 11.5 % (20.5-51.5); MEAN CORPUSCULAR HEMOGLOBIN 30.3 uug (24.7-32.8); MEAN CORPUSCULAR HGB CONC 33 g/dL (32.3-35.6); MEAN CORPUSCULAR VOLUME 93.2 fL (75.5-95.3); MONOCYTES # (AUTO) 0.4 K/uL (2.0-10.0); MONOCYTES % (AUTO) 4.7 % (0.0-11.0); NEUTROPHILS # (AUTO) 7.8 K/uL (1.8-8.9); NEUTROPHILS % (AUTO) 83.4 % (38.5-71.5); PLATELET COUNT (AUTO) 55 K/uL (179-408); RED BLOOD CELL COUNT(AUTO) 3.19 MIL/uL (3.63-4.92); WHITE BLOOD COUNT (AUTO) 9.3 K/uL (3.8-11.8)
[2019-04-25 05:34] LABS: ALANINE AMINOTRANSFERASE < 6 U/L (14-59); ALKALINE PHOSPHATASE 143 U/L (50-136); ASPARTATE AMINOTRANSFERASE 20 U/L (15-37); BILIRUBIN,TOTAL 1.1 mg/dL (0.2-1.0); CARBON DIOXIDE 25 mmol/L (21-32); CHLORIDE 105 mmol/L (98-107); CREATININE 3.2 mg/dL (0.6-1.3); GLUCOSE 161 mg/dL (74-106); PHOSPHOROUS 4.1 mg/dL (2.5-4.9); POTASSIUM 4.1 mmol/L (3.5-5.1); TOTAL PROTEIN, SERUM 5.5 g/dL (6.4-8.2); UREA NITROGEN, BLOOD 66 mg/dL (7-18)
[2019-04-25] MEDS: IV NORMAL SALINE 250 ML IV PRN (06:00)
[2019-04-25] MEDS: HYDROCORTISONE SOD SUCCINATE 100 MG/2 ML VIAL IV SCH ×3 (06:08→23:38)
[2019-04-25] MEDS: LEVOTHYROXINE SODIUM 100 MCG TABLET GT SCH (06:11)
--- NOTE | 2019-04-25 07:00 | NUR ---
RECEIVED PATIENT ON DIALYSIS. PATIENT IS STABLE AT THIS TIME AND SWATI CONTINUES TO BE IN PLACE.
[2019-04-25] MEDS: ALBUTEROL SULFATE 2.5 MG/3 ML NEBU NEB PRN (07:45)
[2019-04-25] MEDS: CARBIDOPA/LEVODOPA 25-100MG TABLET PO SCH ×4 (09:00→21:16)
[2019-04-25] MEDS: ENTACAPONE 200 MG TABLET GT SCH ×4 (09:00→21:18)
--- NOTE | 2019-04-25 09:20 | NUR ---
PATIENT DIALYSIS DONE REPORTED 1.5L OUT.
--- NOTE | 2019-04-25 09:49 | NUR ---
PATIENT CONTINUES TO HAVE HIGH RESIDUALS. PATIENT HAS MORE THAN 300 ML OF RESIDUAL RED CLEAR FLUID DISPOSED AND WILL INFORM DOCTOR IF WANTS IN LOW INTERMITTENT SUCTION. PATIENT PLT LEVEL TRENDING DOWN HGB REMAINS STABLE AT THIS TIME.
[2019-04-25] MEDS: Z GUARD REMEDY PASTE 57 GM TUBE TOP SCH ×2 (09:59→21:17)
[2019-04-25] MEDS: PANTOPRAZOLE SODIUM 40 MG VIAL IV SCH ×2 (09:59→21:15)
--- NOTE | 2019-04-25 11:20 | NUR ---
DOCTOR GONZALEZ IN THE UNIT TO SEE PATIENT. SPOKE TO DAUGHTER. NEW ORDERS IN THE SYSTEM. ASKED IF PATIENT WILL CONTINUE TO BE WITH A- LINE. WILL CONTIUE A-LINE MONITORING PER DOCTOR GONZALEZ AT THIS TIME.
[2019-04-25] MEDS: METOCLOPRAMIDE HCL 10 MG/2 ML VIAL IV SCH ×3 (11:44→21:15)
[2019-04-25] MEDS ORDERED: DEXTROSE 50% 50 ML DISP.SYRIN IV PRN (11:45)
[2019-04-25] MEDS ORDERED: IV D5/ 0.9% NACL 1,000 ML IV PRN (11:45)
[2019-04-25] MEDS: CEFTAZIDIME 1 G in IV DEXTROSE 5% 50 ML IV PRN (13:08)
[2019-04-25] MEDS: MELATONIN 3 MG TABLET GT SCH (21:16)
[2019-04-26] VITALS (20 sets, daily range): BP systolic 95–121; BP diastolic 31–63
--- NOTE | 2019-04-26 00:01 | NUR ---
Tolerating GT feeding, reduced rate. GT site continues to weep; brown drainage.
[2019-04-26] MEDS: ALBUTEROL SULFATE 2.5 MG/3 ML NEBU NEB PRN ×2 (03:38→08:14)
[2019-04-26] MEDS: IPRATROPIUM BROMIDE 0.5 MG/2.5 ML NEBU NEB SCH ×6 (03:38→23:10)
[2019-04-26] MEDS: IV NORMAL SALINE 250 ML IV PRN (03:49)
[2019-04-26 05:22] LABS: BASOPHILS % (AUTO) 0.2 % (0.0-2.0); EOSINOPHILS % (AUTO) 0.2 % (0.0-7.0); HEMATOCRIT 30.9 % (31.2-41.9); LYMPHOCYTES # (AUTO) 1.1 K/uL (20.0-40.0); LYMPHOCYTES % (AUTO) 11.8 % (20.5-51.5); MEAN CORPUSCULAR HEMOGLOBIN 30.2 uug (24.7-32.8); MEAN CORPUSCULAR HGB CONC 33 g/dL (32.3-35.6); MEAN CORPUSCULAR VOLUME 92.9 fL (75.5-95.3); MONOCYTES # (AUTO) 0.5 K/uL (2.0-10.0); MONOCYTES % (AUTO) 5.2 % (0.0-11.0); NEUTROPHILS # (AUTO) 7.4 K/uL (1.8-8.9); NEUTROPHILS % (AUTO) 82.6 % (38.5-71.5); PLATELET COUNT (AUTO) 59 K/uL (179-408); RED BLOOD CELL COUNT(AUTO) 3.32 MIL/uL (3.63-4.92)
[2019-04-26 05:47] LABS: CARBON DIOXIDE 25 mmol/L (21-32); CHLORIDE 105 mmol/L (98-107); GLUCOSE 156 mg/dL (74-106); LYMPHOCYTES % (MANUAL) 12 % (20-40); MAGNESIUM 1.9 mg/dL (1.8-2.4); MONOCYTES % (MANUAL) 3 % (2-10); NEUTROPHILS % (MANUAL) 85 % (42-75); PHOSPHOROUS 4.3 mg/dL (2.5-4.9); POTASSIUM 4.2 mmol/L (3.5-5.1); UREA NITROGEN, BLOOD 65 mg/dL (7-18)
[2019-04-26] MEDS: BLOOD SUGAR DIAGNOSTIC 1 EACH STRIP VI SCH ×3 (05:56→17:55)
[2019-04-26] MEDS: LEVOTHYROXINE SODIUM 100 MCG TABLET GT SCH (05:59)
[2019-04-26] MEDS: METOCLOPRAMIDE HCL 10 MG/2 ML VIAL IV SCH ×3 (05:59→21:01)
[2019-04-26 06:02] LABS: CREATININE 3.1 mg/dL (0.6-1.3)
[2019-04-26] MEDS: INSULIN REGULAR, HUMAN 300 UNIT/3 ML VIAL SQ PRN ×2 (06:02→17:58)
--- NOTE | 2019-04-26 06:04 | NUR ---
Trached patient recieved on ordered settings with no signs of respiaratory fistress noted. She is trached with a Shiley XLT 6 cuffed tube. SAFETY GLASS INSTALLER used for inflation. Airway is patent and secure at midline. Inline treatments administered as oredered. No adverse reactions following suctions or tx. Alarms check. Ambubag and spare trach at bedside. Will continue to monitor.
--- NOTE | 2019-04-26 07:30 | NUR ---
RECIEVED IN BED SOUND ASLEEP, HOB UP 30DEGREES. SLIGHTLY OPENED EYES TO CALLS. ARTERIAL LINE LEFT WRIST SITE IS CLEAN AND INTACT. ABP ON THE LOW 90'S SYSTOLIC. HR IS V-PACING WITH UNDERLYING AFIB CONTROLLED RATE. O2 SAT IS 100% ON 30% FIO2 ON VENT SETTING, AC-15, VT-500. TRACH SITE IS CLEAN AND INTACT. SUCTION VERY LITTLE WHITISH SECRETION. OFF TUBE FEEDING AT THIS TIME. ABDOMEN IS BIG AND DISTENDED BUT SOFTER TO TOUCH. ONE BIG HUGE BM, WATERY BLACKISH COLOR. CLEANED UP.
[2019-04-26] MEDS: PANTOPRAZOLE SODIUM 40 MG VIAL IV SCH ×2 (09:06→21:01)
[2019-04-26] MEDS: ENTACAPONE 200 MG TABLET GT SCH ×4 (09:07→21:02)
[2019-04-26] MEDS: CARBIDOPA/LEVODOPA 25-100MG TABLET PO SCH ×4 (09:07→21:03)
[2019-04-26] MEDS: Z GUARD REMEDY PASTE 57 GM TUBE TOP SCH ×2 (09:08→21:05)
--- NOTE | 2019-04-26 09:30 | NUR ---
SEEN AND EXAMINED BY DR GONZALEZ WITH NEW ORDER. PT IS ANURIC.
--- NOTE | 2019-04-26 10:00 | NUR ---
CHECKED RESIDUAL FROM THE GT- 100ML. HELD TF FOR NOW AND WILL RECHECK IN 1 HR.
[2019-04-26] MEDS: NEPRO 1000 ML GT PRN (10:40)
--- NOTE | 2019-04-26 11:00 | NUR ---
GT CHECKED AGAIN. NO RESIDUALS NOTED. STARTED TF NEPRO AT 20ML/HR.
[2019-04-26] MEDS: HYDROCORTISONE SOD SUCCINATE 100 MG/2 ML VIAL IV SCH ×2 (11:48→22:33)
[2019-04-26] MEDS: CEFTAZIDIME 1 G in IV DEXTROSE 5% 50 ML IV SCH ×2 (15:32→17:54)
--- NOTE | 2019-04-26 15:45 | NUR ---
PM CARE RENDERED.
--- NOTE | 2019-04-26 16:00 | NUR ---
[facility] IVPB NOT GIVEN SCHEDULED,PT IS BEING DIALYSED. PHARMACY AWARE.
[2019-04-26] MEDS: MELATONIN 3 MG TABLET GT SCH (21:03)
--- NOTE | 2019-04-26 21:27 | NUR ---
Pt received on Guerra vent with settings of AC 15, VT 500, FiO2 30%. Pt is trached with a Shiley 6XLT-D, trach is patent and secure. No signs of respiratory distress noted, pt tolerating vent settings well at this time. In-line neb treatment given per md order, tolerated well with no adverse reaction noted. Suctioned pt with small amounts of thick white secretions. Vent alarm functioning and audible. Ambu-bag and back-up trach at bedside. Vent plugged into red emergency outlet. Will continue to monitor pt throughout shift.
--- NOTE | 2019-04-26 22:00 | NUR ---
Dr Segovia, Truong at bedside..
[2019-04-27] VITALS (10 sets, daily range): BP systolic 85–115; BP diastolic 38–62
[2019-04-27] MEDS: BLOOD SUGAR DIAGNOSTIC 1 EACH STRIP VI SCH ×4 (00:06→18:07)
[2019-04-27] MEDS: INSULIN REGULAR, HUMAN 300 UNIT/3 ML VIAL SQ PRN ×4 (00:07→18:07)
[2019-04-27] MEDS: IPRATROPIUM BROMIDE 0.5 MG/2.5 ML NEBU NEB SCH ×6 (02:14→22:30)
[2019-04-27] MEDS: ALBUTEROL SULFATE 2.5 MG/3 ML NEBU NEB PRN (02:14)
[2019-04-27] MEDS: METOCLOPRAMIDE HCL 10 MG/2 ML VIAL IV SCH ×3 (05:38→21:08)
[2019-04-27] MEDS: LEVOTHYROXINE SODIUM 100 MCG TABLET GT SCH (05:39)
[2019-04-27] MEDS: IV NORMAL SALINE 250 ML IV PRN (05:51)
[2019-04-27 05:55] LABS: BASOPHILS % (AUTO) 0.5 % (0.0-2.0); EOSINOPHILS % (AUTO) 0.2 % (0.0-7.0); HEMATOCRIT 29.9 % (31.2-41.9); HEMOGLOBIN 9.6 g/dL (10.9-14.3); LYMPHOCYTES # (AUTO) 0.9 K/uL (20.0-40.0); LYMPHOCYTES % (AUTO) 11.8 % (20.5-51.5); MEAN CORPUSCULAR HEMOGLOBIN 30.1 uug (24.7-32.8); MEAN CORPUSCULAR HGB CONC 32 g/dL (32.3-35.6); MEAN CORPUSCULAR VOLUME 93.2 fL (75.5-95.3); MONOCYTES # (AUTO) 0.4 K/uL (2.0-10.0); MONOCYTES % (AUTO) 5.3 % (0.0-11.0); NEUTROPHILS # (AUTO) 6.3 K/uL (1.8-8.9); NEUTROPHILS % (AUTO) 82.2 % (38.5-71.5); PLATELET COUNT (AUTO) 52 K/uL (179-408); RED BLOOD CELL COUNT(AUTO) 3.21 MIL/uL (3.63-4.92); WHITE BLOOD COUNT (AUTO) 7.6 K/uL (3.8-11.8)
[2019-04-27 06:17] LABS: CARBON DIOXIDE 22 mmol/L (21-32); CHLORIDE 106 mmol/L (98-107); CREATININE 3.4 mg/dL (0.6-1.3); GLUCOSE 174 mg/dL (74-106); PHOSPHOROUS 5.1 mg/dL (2.5-4.9); POTASSIUM 4.2 mmol/L (3.5-5.1); UREA NITROGEN, BLOOD 76 mg/dL (7-18)
[2019-04-27 06:30] LABS: LYMPHOCYTES % (MANUAL) 11 % (20-40); MONOCYTES % (MANUAL) 8 % (2-10); NEUTROPHILS % (MANUAL) 81 % (42-75)
--- NOTE | 2019-04-27 07:15 | NUR ---
Pt received on Guerra vent with settings of AC 15, VT 500, FiO2 30%. Pt is trached with a Shiley 6XLT-D, trach is patent and secure. No signs of respiratory distress noted, pt tolerating vent settings well at this time. Vent alarm functioning and audible. Ambu-bag and back-up trach at bedside. patient has hopkins with minimal antionette colored urine in tubing, air mattress inflated, scd's on. Will continue to monitor pt throughout shift
--- NOTE | 2019-04-27 07:30 | NUR ---
Received order to discontinue arterial line. Line removed intact, pressure held for 20 minutes. No bleeding noted on site after 20 minutes.
--- NOTE | 2019-04-27 07:55 | NUR ---
Pt received on continuous mechanical ventilation via Trach. Pt is on Guerra vent with ordered settings of A/C-15, VT-500, FIO2-30% Trach is Hodanley 6XLT-D, patent and secure. In-line nebulizer Treatments given as ordered with Q4 Atrovent. Txs tolerated well, with no adverse reaction noted. Sxn'd for small amounts of thick white secretions. Vent alarm parameters checked, on and audible. Bag/valve/mask and back up trach at bedside. Vent plugged into red emergency outlet. HME changed. Oral care and Trach care done. Will continue to monitor Pt throughout shift.
--- NOTE | 2019-04-27 08:10 | NUR ---
Dr. Townsend at bedside to assess patient.
[2019-04-27] MEDS: CARBIDOPA/LEVODOPA 25-100MG TABLET PO SCH ×4 (08:20→21:09)
[2019-04-27] MEDS: ENTACAPONE 200 MG TABLET GT SCH ×4 (08:20→21:09)
[2019-04-27] MEDS: PANTOPRAZOLE SODIUM 40 MG VIAL IV SCH ×2 (08:20→21:08)
[2019-04-27] MEDS: Z GUARD REMEDY PASTE 57 GM TUBE TOP SCH ×2 (08:22→21:10)
[2019-04-27] MEDS: NEPRO 1000 ML GT PRN (09:53)
--- NOTE | 2019-04-27 10:00 | NUR ---
Tube feeding was held at this time due to 50cc/residual. Will attempt to try again i 1 hour.
[2019-04-27] MEDS: HYDROCORTISONE SOD SUCCINATE 100 MG/2 ML VIAL IV SCH ×2 (10:08→22:50)
--- NOTE | 2019-04-27 11:00 | NUR ---
Checked residual from gtube, 50cc removed and replaced. Tube feeding resumed @30cc/hr.
--- NOTE | 2019-04-27 16:10 | NUR ---
STERILE DRESSING CHANGE OF RIGHT NECK CENTRAL LINE PERFORMED.
--- NOTE | 2019-04-27 18:49 | NUR ---
Patient continues on kaley vent shiley 6xlt, a/c 15, TV 500, fio2 30%. Patient is controlled afib with pacer set at 75. IV fluids running at 5cc/hr, air mattress inflated, minimal urine output for the day. SCD's on, wound care performed and patient was frequently turned and repositioned throughout shift. Patient is hemodynamically stable.
--- NOTE | 2019-04-27 20:00 | NUR ---
Patient being dialized at this time.
[2019-04-27] MEDS: MELATONIN 3 MG TABLET GT SCH (21:07)
[2019-04-27] MEDS: CEFTAZIDIME 1 G in IV DEXTROSE 5% 50 ML IV PRN (22:48)
--- NOTE | 2019-04-27 23:30 | NUR ---
Patient tolerated dialysis, BP stable at this time. No distress noted.
[2019-04-28] VITALS: BP 99/48
[2019-04-28] MEDS: INSULIN REGULAR, HUMAN 300 UNIT/3 ML VIAL SQ PRN ×3 (00:04→18:51)
[2019-04-28] MEDS: IPRATROPIUM BROMIDE 0.5 MG/2.5 ML NEBU NEB SCH ×5 (02:30→19:30)
--- NOTE | 2019-04-28 03:28 | NUR ---
Gtube site cleansed and redressed. Small amount of blood noted coming from gtube site, tube feeding continues to leak from gtube site. Cleansed skin and covered with abd pad.
[2019-04-28 04:00] VITALS: BP 92/51
[2019-04-28] MEDS: METOCLOPRAMIDE HCL 10 MG/2 ML VIAL IV SCH ×2 (05:40→15:53)
[2019-04-28] MEDS: BLOOD SUGAR DIAGNOSTIC 1 EACH STRIP VI SCH ×4 (05:51→18:52)
[2019-04-28 06:01] LABS: BASOPHILS % (AUTO) 0.2 % (0.0-2.0); EOSINOPHILS # (AUTO) 0.1 K/uL (0.0-0.7); EOSINOPHILS % (AUTO) 0.9 % (0.0-7.0); HEMATOCRIT 28.8 % (31.2-41.9); HEMOGLOBIN 9.3 g/dL (10.9-14.3); LYMPHOCYTES # (AUTO) 0.8 K/uL (20.0-40.0); MEAN CORPUSCULAR HEMOGLOBIN 30.3 uug (24.7-32.8); MEAN CORPUSCULAR HGB CONC 32 g/dL (32.3-35.6); MEAN CORPUSCULAR VOLUME 93.8 fL (75.5-95.3); MONOCYTES # (AUTO) 0.5 K/uL (2.0-10.0); MONOCYTES % (AUTO) 6.6 % (0.0-11.0); NEUTROPHILS # (AUTO) 5.6 K/uL (1.8-8.9); NEUTROPHILS % (AUTO) 80.3 % (38.5-71.5); PLATELET COUNT (AUTO) 53 K/uL (179-408); RED BLOOD CELL COUNT(AUTO) 3.07 MIL/uL (3.63-4.92); WHITE BLOOD COUNT (AUTO) 6.9 K/uL (3.8-11.8)
[2019-04-28] MEDS: LEVOTHYROXINE SODIUM 100 MCG TABLET GT SCH (06:20)
[2019-04-28 06:30] LABS: CARBON DIOXIDE 26 mmol/L (21-32); CHLORIDE 106 mmol/L (98-107); CREATININE 3.2 mg/dL (0.6-1.3); GLUCOSE 163 mg/dL (74-106); MAGNESIUM 1.9 mg/dL (1.8-2.4); PHOSPHOROUS 4.5 mg/dL (2.5-4.9); POTASSIUM 4.4 mmol/L (3.5-5.1); UREA NITROGEN, BLOOD 70 mg/dL (7-18)
--- NOTE | 2019-04-28 06:31 | NUR ---
Patient continues to be with chronic trach 6xlt on bennett vent a/c 15, fio2 30%, TV 500. Vieyra draining none/minimal urine. Air mattress inflated, scd's on. Patient is alert to name, and opens eyes. patient is hemodynamically stable, no distress noted throughout shift, Safety precautions maintained. Patient frequently repositioned and oral care performed. Bed in low position, side rails up x2.
--- NOTE | 2019-04-28 07:30 | NUR ---
RECIEVED PT ON SEMI LOPEZ'S, OPENS EYES TO CALL. PT STILL GENERALLY WEAKADN EDMATOUS +3. HR VPACING 80% WITH UNDERLYING ATRIAL FIBRILLATION CONTROLLED VENTRICULAR RATE.
[2019-04-28] MEDS: ALBUTEROL SULFATE 2.5 MG/3 ML NEBU NEB PRN ×3 (07:39→15:40)
[2019-04-28 08:00] VITALS: BP 92/49
[2019-04-28] MEDS: PANTOPRAZOLE SODIUM 40 MG VIAL IV SCH (08:45)
[2019-04-28] MEDS: CARBIDOPA/LEVODOPA 25-100MG TABLET PO SCH ×3 (08:45→17:00)
[2019-04-28] MEDS: ENTACAPONE 200 MG TABLET GT SCH ×3 (08:46→17:00)
[2019-04-28] MEDS: Z GUARD REMEDY PASTE 57 GM TUBE TOP SCH (08:47)
--- NOTE | 2019-04-28 10:00 | NUR ---
GTUBE RESIDUAL IS 90ML. HELD THE TUBE FEEDING FOR NOW AND WILL RECHECK IT AGAIN IN 1 HOUR. GTUBE SITE STILL LEAKING AT THE SITE. ABDOMEN IS STILL BIG BUT SOFT TO TOUCH. NO BM NOTED AT THIS TIME.
[2019-04-28] MEDS: HYDROCORTISONE SOD SUCCINATE 100 MG/2 ML VIAL IV SCH (11:40)
[2019-04-28] MEDS: NEPRO 1000 ML GT PRN (12:11)
--- NOTE | 2019-04-28 12:30 | NUR ---
HEMODIALYSIS STARTED IN THE ROOM ORDERED. PT TOLERATING GOOD.
--- NOTE | 2019-04-28 15:50 | NUR ---
HEMODIALYSIS IS DONE. BP IS HOLDING WELL.
--- NOTE | 2019-04-28 17:00 | NUR ---
CHRISTIN AND DANTE FOR 1699 NOT GIVE. TOO CLOSE TO THE LAT 1500 DOSE GIVEN LATE SECONDARY TO DIALYSIS.
--- NOTE | 2019-04-28 17:30 | NUR ---
GT HAS A HIGH RESIDUALS UP TO 120ML. HELD THE TUBE FEEDING. PT IS BEING DISCHARGED BACK TO [facility]. ETA WITH AMBULANCE IS 1800.
--- NOTE | 2019-04-28 18:30 | NUR ---
DAUGHTER IS AWARE OF TE TRANSFER.
[2019-04-28 19:30] VITALS: BP 109/92
--- NOTE | 2019-04-28 19:45 | NUR ---
Pt transferred to Center at [facility].
--- NOTE | 2019-04-28 19:45 | NUR ---
gave report to walter , midline removed , patient ws on 3 pressors and when it was stopped , mid line removed today by day shift and nephro feeding at 40 ml . with residual , during day shift , and scant drainage on the gt site
--- NOTE | 2019-04-28 19:55 | NUR ---
gardenia gave report to ambulance , i gave report to walter , history , feeding , radiology reports , recent labs , recent procedure done and hemodialysis done today , iv site right ij patent , hopkins , right oksana catheter , code status , allergy . vent settings , and size
== END 2019-04-28 19:50 | DRG 870 ==
LOC: ER 13:41 → CCU 16:47
PROVIDERS: ADMIT Internal Medicine; ATTEND Internal Medicine Nephrology
PROC: 5A1955Z Respiratory Ventilation, Greater than 96 Consecutive Hours (ICD-10-PCS; principal; 2019-04-11)
PROC: 02HV33Z Insertion of Infusion Device into Superior Vena Cava, Percutaneous Approach (ICD-10-PCS; 2019-04-13)
PROC: B548ZZA Ultrasonography of Superior Vena Cava, Guidance (ICD-10-PCS; 2019-04-13)
PROC: 03HY32Z Insertion of Monitoring Device into Upper Artery, Percutaneous Approach (ICD-10-PCS; 2019-04-13)
PROC: 0W9G3ZZ Drainage of Peritoneal Cavity, Percutaneous Approach (ICD-10-PCS; 2019-04-13)
PROC: 30233N1 Transfusion of Nonautologous Red Blood Cells into Peripheral Vein, Percutaneous Approach (ICD-10-PCS; 2019-04-13)
PROC: 06HY33Z Insertion of Infusion Device into Lower Vein, Percutaneous Approach (ICD-10-PCS; 2019-04-16)
PROC: 5A1D70Z Performance of Urinary Filtration, Intermittent, Less than 6 Hours Per Day (ICD-10-PCS; 2019-04-17)
PROC: 0W9G3ZZ Drainage of Peritoneal Cavity, Percutaneous Approach (ICD-10-PCS; 2019-04-23)
DX: A41.9 Sepsis, unspecified organism (principal); J15.1 Pneumonia due to Pseudomonas; G92 Toxic encephalopathy; N17.0 Acute kidney failure with tubular necrosis; L89.153 Pressure ulcer of sacral region, stage 3; R65.21 Severe sepsis with septic shock; E43 Unspecified severe protein-calorie malnutrition; J96.22 Acute and chronic respiratory failure with hypercapnia; J96.21 Acute and chronic respiratory failure with hypoxia; J96.11 Chronic respiratory failure with hypoxia; N39.0 Urinary tract infection, site not specified; I48.20 Chronic atrial fibrillation, unspecified; I50.32 Chronic diastolic (congestive) heart failure; Z99.11 Dependence on respirator [ventilator] status; E87.2 Acidosis; E87.1 Hypo-osmolality and hyponatremia; J98.11 Atelectasis; R18.8 Other ascites; I95.9 Hypotension, unspecified; G20 Parkinson's disease; F02.80 Dementia in other diseases classified elsewhere, unspecified severity, without behavioral disturbance, psychotic disturbance, mood disturbance, and anxiety; E03.9 Hypothyroidism, unspecified; M10.9 Gout, unspecified; E11.22 Type 2 diabetes mellitus with diabetic chronic kidney disease; Z95.3 Presence of xenogenic heart valve; D50.0 Iron deficiency anemia secondary to blood loss (chronic); K74.60 Unspecified cirrhosis of liver; I07.1 Rheumatic tricuspid insufficiency; M85.80 Other specified disorders of bone density and structure, unspecified site; K64.9 Unspecified hemorrhoids; K57.30 Diverticulosis of large intestine without perforation or abscess without bleeding; I70.0 Atherosclerosis of aorta; Z79.01 Long term (current) use of anticoagulants; Z79.4 Long term (current) use of insulin; Z93.0 Tracheostomy status; T38.0X5A Adverse effect of glucocorticoids and synthetic analogues, initial encounter; R13.10 Dysphagia, unspecified
CPT/HCPCS: 36415; 36600; 70030-TC; 71045; 74018; 76705; 82533; 83550; 83605; 83690; 83735; 84100; 84156; 84300; 84443; 84478; 85018; 85025; 85610; 85730; 86706; 86803; 86850; 86900; 86901; 86920; 87040; 87070; 87077; 87086; 87340; 87806; 90937; 93005; 93307; 94002; 94003; 94640; A4217; A4663; C9113; G0378; J0610; J0713; J0885; J1265; J1720; J1815; J2185; J2248; J2370; J2543; J2765; J2916; J3370; J3475; J3480; J3490; J3590; J7030; J7040; J7042; J7050; J7060; J7070; J7131; J8499; P9016-BL; P9021; P9047